=== PATIENT | female | born 1965 | race Caucasian/White ===

== ENCOUNTER → 2016-09-16 | Outpatient (CLI) | payer OTHER | LOC: M CLY 10:33 | PROVIDERS: ATTEND Physician Assistant | DX: R05 Cough (principal); Z53.9 Procedure and treatment not carried out, unspecified reason ==

== ENCOUNTER 2017-07-28 10:00 | Emergency (ER) | payer OTHER ==
[2017-07-28 11:42] LABS: HEMATOCRIT 35.2 % (36.0-47.0); HEMOGLOBIN 12.2 g/dl (12.0-15.5); MEAN CORPUSCULAR HEMOGLOBIN 33.6 pg (27.0-33.0); MEAN CORPUSCULAR HGB CONC 34.7 g/dl (32.0-36.5); PLATELET COUNT, AUTOMATED 287 10^3/uL (150-450); RED BLOOD COUNT 3.63 10^6/uL (4.00-5.40); RED CELL DISTRIBUTION WIDTH 11.7 % (11.5-14.5); WHITE BLOOD COUNT 12.3 10^3/uL (4.0-10.0)
[2017-07-28 12:14] LABS: ACETAMINOPHEN LEVEL < 2.0 UG/ML (10.0-30.0); ALBUMIN 3.3 GM/DL (3.2-5.2); ALBUMIN/GLOBULIN RATIO 1.06 (1.00-1.93); ALKALINE PHOSPHATASE 53 U/L (45-117); ALT/SGPT 10 U/L (12-78); ANION GAP 6 MEQ/L (8-16); AST/SGOT 8 U/L (7-37); BILIRUBIN,DIRECT 0.1 MG/DL (0.0-0.2); BILIRUBIN,TOTAL 0.3 MG/DL (0.2-1.0); BLOOD UREA NITROGEN 10 MG/DL (7-18); CALCIUM LEVEL 8.3 MG/DL (8.5-10.1); CARBON DIOXIDE LEVEL 29 MEQ/L (21-32); CHLORIDE LEVEL 108 MEQ/L (98-107); CPK CREATINE PHOSPHOKINASE 32 U/L (26-192); CREATININE FOR GFR 0.63 MG/DL (0.55-1.30); GLOMERULAR FILTRATION RATE > 60.0 (>51); GLUCOSE, FASTING 73 MG/DL (70-100); POTASSIUM SERUM 4.2 MEQ/L (3.5-5.1); SALICYLATE LEVEL 2.9 MG/DL (5.0-30.0); SODIUM LEVEL 143 MEQ/L (136-145); TOTAL PROTEIN 6.4 GM/DL (6.4-8.2); TROPONIN I < 0.02 NG/ML (< 0.10)
[2017-07-28 12:16] LABS: AMPHETAMINES LEVEL URINE NEGATIVE (NEGATIVE); BARBITURATES URINE NEGATIVE (NEGATIVE); BENZODIAZEPINES URINE NEGATIVE (NEGATIVE); CANNABINOIDS URINE NEGATIVE (NEGATIVE); COCAINE METABOLITE URINE NEGATIVE (NEGATIVE); ETHYL ALCOHOL (ETHANOL) < 0.003 % (0.000-0.010); METHADONE URINE NEGATIVE (NEGATIVE); OPIATES URINE NEGATIVE (NEGATIVE); PHENCYCLIDINE URINE NEGATIVE (NEGATIVE)
[2017-07-28 12:20] LABS: CK-MB VALUE MASS < 1.0 NG/ML (<3.6); MB/CK RELATIVE INDEX 3.12 (< OR =4); THYROID STIMULATING HORMONE 0.446 uIU/ML (0.358-3.740)
== END 2017-07-28 17:32 | disposition short-term general hospital (02) ==
LOC: M ED 10:00
DX: C71.9 Malignant neoplasm of brain, unspecified (principal); R51 Headache; R41.82 Altered mental status, unspecified; F41.9 Anxiety disorder, unspecified; F32.9 Major depressive disorder, single episode, unspecified; F17.200 Nicotine dependence, unspecified, uncomplicated; Z82.49 Family history of ischemic heart disease and other diseases of the circulatory system
CPT/HCPCS: 71046

== ENCOUNTER 2019-05-09 08:51 | Inpatient (IN) | payer OTHER ==
[~2019-05-09] VITALS: Ht 162.6 cm; Wt 53.2 kg
[~2019-05-09 08:51] MED LIST: BUPR150T3; LORA-243 PO; VENTAER
[2019-05-09] MEDS ORDERED: PANT40TA3 PO (08:59)
[2019-05-09] MEDS ORDERED: PERI12LIQ SSP (08:59)
[2019-05-09] MEDS ORDERED: ONDA-83 SL (08:59)
[2019-05-09 09:31] LABS: BASO % 0.5 % (0.0-1.0); EOS # 0.1 10^3/uL (0.0-0.5); EOS % 0.9 % (0.0-3.0); HEMATOCRIT 40.6 % (36.0-47.0); HEMOGLOBIN 13.8 g/dl (12.0-15.5); LYMPH # 1.2 10^3/uL (1.5-5.0); LYMPH % 15.1 % (24.0-44.0); MEAN CORPUSCULAR HEMOGLOBIN 32.9 pg (27.0-33.0); MEAN CORPUSCULAR VOLUME 96.9 fl (80.0-96.0); MONO # 1.1 10^3/uL (0.0-0.8); MONO % 13.6 % (0.0-5.0); NEUTROPHILS # 5.7 10^3/uL (1.5-8.5); NEUTROPHILS % 69.7 % (36.0-66.0); PLATELET COUNT, AUTOMATED 279 10^3/uL (150-450); RED BLOOD COUNT 4.19 10^6/uL (4.00-5.40); WHITE BLOOD COUNT 8.2 10^3/uL (4.0-10.0)
[2019-05-09 10:07] LABS: ALBUMIN 3.2 GM/DL (3.2-5.2); ALT/SGPT 20 U/L (12-78); BILIRUBIN,DIRECT < 0.1 MG/DL (0.0-0.2); BILIRUBIN,TOTAL 0.3 MG/DL (0.2-1.0); BLOOD UREA NITROGEN 8 MG/DL (7-18); CALCIUM LEVEL 8.1 MG/DL (8.5-10.1); CARBON DIOXIDE LEVEL 27 MEQ/L (21-32); CHLORIDE LEVEL 104 MEQ/L (98-107); CREATININE FOR GFR 0.57 MG/DL (0.55-1.30); GLOMERULAR FILTRATION RATE > 60.0 (>51); GLUCOSE, FASTING 82 MG/DL (70-100); LIPASE 1725 U/L (73-393); POTASSIUM SERUM 4.2 MEQ/L (3.5-5.1); SODIUM LEVEL 137 MEQ/L (136-145); TOTAL PROTEIN 6.3 GM/DL (6.4-8.2)
[2019-05-09 10:14] LABS: INFLUENZA A AMPLIFICATION NEGATIVE (NEGATIVE); INFLUENZA B AMPLIFICATION NEGATIVE (NEGATIVE)
[2019-05-09] MEDS ORDERED: ISOVUE-370 76% 100ML VIAL (Q9967) As Ordered ONE (10:30)
[2019-05-09] MEDS ORDERED: ONDANSETRON 4MG/2ML VIAL (J2405) IV ONE (10:30)
[2019-05-09] MEDS ORDERED: NS 1,000 ML IV ONE ×2 (10:30→13:45)
--- NOTE | 2019-05-09 11:40 | REP ---
Clinical: Right-sided abdominal pain. History of metastatic lung cancer. Technique: Axial contrast enhanced images from the lung bases to the pubic symphysis using 100 ml Isovue 370 intravenous contrast material with coronal and sagittal re-formations. Findings: A small amount of ascites within the abdomen and pelvis is appreciated along with mild mucosal thickening to the sigmoid colon raises the possibility of infectious/inflammatory colitis. There is no free air or bowel obstruction. Scattered diverticula noted without acute diverticulitis. Liver, spleen, gallbladder, pancreas, bilateral adrenal glands and kidneys are essentially normal. A 2.6 cm simple appearing right renal cyst is identified. No evidence for bowel obstruction. Evaluation of the pelvis demonstrates enlarged heterogeneous uterus with small adjacent hyperenhancing nodular densities measuring up to approximately 11 mm likely representing small partially exophytic/subserosal fibroids. Hyperenhancement to the right adnexa is also noted and likely physiologic. Atherosclerotic changes to the aorta and vasculature without aneurysm or dissection. Musculoskeletal structures demonstrate age-related changes without focal abnormality. Impression: 1. Small amount of ascites within the abdomen and pelvis along with findings to suggest infectious/inflammatory colitis involving the sigmoid colon. Correlation is recommended. 2. Heterogeneous enlarged myomatous uterus with small hyperenhancing subserosal nodular densities up to 11 mm likely representing actually exophytic/subserosal fibroids. Associated hyperenhancement to the right adnexa likely physiologic. If clinically warranted, consider pelvic ultrasound for further investigation. Electronically Signed by Petey Krishna MD 05/09/2019 11:32 A
[2019-05-09 12:59] LABS: AMYLASE 151 U/L (25-115)
[2019-05-09] MEDS ORDERED: HYDR50TA70 PO (13:27)
[2019-05-09] MEDS ORDERED: LIDO2.5C15 TOP (13:27)
[2019-05-09] MEDS ORDERED: ALBU8.5H INH (13:27)
[2019-05-09] MEDS ORDERED: ONDA4TAB6 PO (13:27)
[2019-05-09] MEDS ORDERED: MORPHINE 2 MG/ML 1ML VIAL (J2270) IV ONE ×2 (13:45→15:00)
[2019-05-09] MEDS ORDERED: EMLA CREAM 5GM (LIDOCAINE/PRILOCAINE) TOP SCH (14:45)
[2019-05-09 16:15] VITALS: BP 114/71
[2019-05-09] MEDS: LORATADINE 10 MG TAB PO SCH (17:36)
[2019-05-09] MEDS: PANTOPRAZOLE 40MG INJ (PROTONIX) (C9113) IV SCH (17:36)
[2019-05-09] MEDS: D5W/LR 1,000 ML IV SCH (17:36)
[2019-05-09] MEDS: CHLORHEXIDINE GLUCONATE 0.12 % 15ML UDC (PERIDEX ORAL RINSE) SSP SCH ×2 (17:37→20:29)
--- NOTE | 2019-05-09 20:15 | HPE ---
DATE OF ADMISSION: 05/09/2019 TIME: 3 p.m. CHIEF COMPLAINT: Abdominal pain. HISTORY OF PRESENT ILLNESS: Mrs. Mcguire is a 54-year-old woman with a past medical history notable for stage IV nonsmall cell lung cancer with metastases to the brain, back, and suspect liver who also has a history of anxiety and depression and gastroesophageal reflux disease (GERD). She is an active smoker. She is currently on Keytruda therapy every [address] Shahbaz Dowling at [facility]. Her last Keytruda infusion was approximately 3 weeks ago. In the interim time, patient had had her bad teeth removed and had been on a week's worth of Augmentin. She started experiencing epigastric abdominal pain which radiated to her back approximately 2 days ago. Around that same time, she had been feeling constipated so she had taken Maalox to deal with the epigastric pain and also to see if that would help with her constipation. She subsequently has developed diarrhea over the last couple of days in addition to nausea and vomiting. She presented to the hospital today and was evaluated in the [facility] Emergency Room by the emergency room (ER) staff. She was found to have a lipase of [address] of [address] of the abdomen and pelvis did not show any specific pancreatic inflammation, but did suggest that she had some mild sigmoid colon wall thickening suggestive of colitis. She is not currently having any acute abdominal pain in her lower quadrant nor is she having any further diarrhea. She was diagnosed as likely having Keytruda induced pancreatitis and admitted to the hospitalist service for supportive care. ALLERGIES: No known drug allergies. CURRENT HOME MEDICATIONS: Are the following: - albuterol inhaler - chlorhexidine - gluconate mouth wash - hydroxyzine - EMLA cream - loratadine - Zofran - Protonix PAST MEDICAL HISTORY: Notable for allergies, GERD, depression, anxiety, as well as lung cancer with metastases. SURGICAL HISTORY: Notable for tubal ligation, Edplax-d-Zmjo placement. SOCIAL HISTORY: Patient is . She lives at home with her . She is not currently working. She smokes about a half a pack per day. She does not use any alcohol or illicit drugs. Patient does not have advanced directives, but she designated her sister, Unique, as her surrogate medical decision maker. She would like to be a FULL CODE for now. FAMILY HISTORY: Notable for her mom who had valvular heart disease as well as lung cancer, dad who had coronary artery disease, and a maternal aunt who also had diabetes. REVIEW OF SYSTEMS: Positive for the abdominal pain, nausea, vomiting, epigastric abdominal pain, diarrhea, recent tooth extractions, and antibiotic use. PHYSICAL EXAMINATION: The patient's temperature is 96.6, pulse 82, respiration rate 20, blood pressure 128/74, oxygen saturation 97% on room air. General: Patient is alert and oriented times three. She is a middle-aged woman who is not cachectic in appearance. Her head is atraumatic. Her pupils are symmetric and reactive to light. No scleral icterus or conjunctival injection. Oropharynx is clear without erythema or thrush. Her neck is supple, no palpable lymphadenopathy. Lung sounds are heard bilaterally without rales, wheezes, or rhonchi. Heart is S1, S2, she is normocardic without any audible murmurs, rubs, or gallops. Her abdomen is soft, she has palpable epigastric tenderness with palpable organomegaly, no peritoneal signs are noted on my examination. Extremities without any cyanosis, clubbing, or edema. Neurologic exam: Cranial nerves II-XII appear to be grossly intact. Her speech is fluent. She is not exhibiting any facial asymmetry. Her extraocular movements are full in all directions. She denies having any vision changes. PERTINENT DIAGNOSTIC STUDIES: Are the following: Imaging study consisting of a CT of the abdomen and pelvis with contrast shows a small amount of ascites within the abdomen and pelvis along with findings to suggest infectious or inflammatory colitis involving the sigmoid colon. Heterogenous enlarged myomatous uterus with small hyperenhancing subserosal nodular densities up to 11 mm likely representing actually exophytic or subserosal fibroids. RELEVANT LABORATORIES: White count 8.2, hemoglobin 13.8, hematocrit 46, platelet count 279,000, sodium 137, potassium 4.2, chloride 104, bicarbonate 27, BUN 8, creatinine 0.57, glucose 82, total bilirubin 0.3, AST 17, ALT 20, alkaline phosphatase 49, albumin 3.2, lipase 1725, amylase 151. IMPRESSION: 1. Acute pancreatitis likely secondary to patient's Keytruda treatment. 2. Mild sigmoid colitis noted on CT of the abdomen and pelvis without any clinical findings to suggest acute colitis. This is likely associated with her Keytruda treatment also. 3. Stage IV lung cancer with metastases. 4. Anxiety and depression. PLAN: Patient will be admitted to inpatient status for treatment of her drug-induced pancreatitis. She will be kept nothing by mouth for now and will be placed on dextrose 5% in lactated ringers (D5LR) at 125 mL/hour. Will recheck lipase and comprehensive metabolic panel (CMP) and complete blood count (CBC) in the morning. Patient will receive supportive morphine for pain control with Zofran. Will resume her home medications. I have instructed her that when she is discharged to followup with her oncologist to discuss possible furlough from Keytruda treatment due to the development of pancreatitis and what appears to be developing colitis on CT scan. Patient will be a FULL CODE with her sister as her surrogate medical decision maker. She will be placed on Lovenox and thromboembolism deterrent stockings (TEDs) for deep venous thrombosis (DVT) prophylaxis.
[2019-05-09] MEDS: MORPHINE 2 MG/ML 1ML VIAL (J2270) IV PRN (20:42)
[2019-05-09 22:00] VITALS: BP 115/59
[2019-05-10] MEDS: hydrOXYzine 50 MG TAB PO PRN (01:35)
[2019-05-10] MEDS: D5W/LR 1,000 ML IV SCH ×4 (01:36→16:24)
[2019-05-10] MEDS: MORPHINE 2 MG/ML 1ML VIAL (J2270) IV PRN ×8 (01:36→23:49)
[2019-05-10 06:00] VITALS: BP 98/56
[2019-05-10 07:10] LABS: HEMATOCRIT 33.6 % (36.0-47.0); HEMOGLOBIN 11.3 g/dl (12.0-15.5); MEAN CORPUSCULAR HEMOGLOBIN 32.6 pg (27.0-33.0); MEAN CORPUSCULAR HGB CONC 33.6 g/dl (32.0-36.5); MEAN CORPUSCULAR VOLUME 96.8 fl (80.0-96.0); PLATELET COUNT, AUTOMATED 231 10^3/uL (150-450); RED BLOOD COUNT 3.47 10^6/uL (4.00-5.40); WHITE BLOOD COUNT 6.4 10^3/uL (4.0-10.0)
[2019-05-10 07:31] LABS: ALBUMIN 2.2 GM/DL (3.2-5.2); ALT/SGPT 17 U/L (12-78); BILIRUBIN,TOTAL 0.2 MG/DL (0.2-1.0); BLOOD UREA NITROGEN 5 MG/DL (7-18); CALCIUM LEVEL 7.8 MG/DL (8.5-10.1); CARBON DIOXIDE LEVEL 27 MEQ/L (21-32); CHLORIDE LEVEL 107 MEQ/L (98-107); CREATININE FOR GFR 0.54 MG/DL (0.55-1.30); GLOMERULAR FILTRATION RATE > 60.0 (>51); GLUCOSE, FASTING 105 MG/DL (70-100); LIPASE 757 U/L (73-393); POTASSIUM SERUM 3.7 MEQ/L (3.5-5.1); SODIUM LEVEL 136 MEQ/L (136-145); TOTAL PROTEIN 4.9 GM/DL (6.4-8.2)
[2019-05-10] MEDS: ENOXAPARIN 40 MG/0.4 ML SYRINGE (J1650) SC SCH (08:34)
[2019-05-10] MEDS: CHLORHEXIDINE GLUCONATE 0.12 % 15ML UDC (PERIDEX ORAL RINSE) SSP SCH ×4 (08:34→20:21)
[2019-05-10] MEDS: PANTOPRAZOLE 40MG INJ (PROTONIX) (C9113) IV SCH (08:34)
[2019-05-10] MEDS: LORATADINE 10 MG TAB PO SCH (08:34)
[2019-05-10 14:00] VITALS: BP 103/68
--- NOTE | 2019-05-10 15:53 | IPNPDOC ---
Subjective Date Seen The patient was seen on 05/10/19. Subjective Chief Complaint/HPI continues to have epigastric pain, but reports it is not as bad as yesterday. No n/v Objective Physical Examination General Exam: Positive: Alert, Mild Distress Eye Exam: Negative: Sclera icteric Neck Exam: Positive: Supple; Negative: JVD Chest Exam: Positive: Clear to auscultation Heart Exam: Positive: Rate Normal, Normal S1, Normal S2; Negative: Murmurs Abdomen Exam: Positive: Normal bowel sounds, Tenderness (epigastric) Extremity Exam: Negative: Edema Neuro Exam: Positive: Normal Speech Psych Exam: Positive: Mental status NL, Mood NL, Oriented x 3 Assessment /Plan Assessment # Acute pancreatitis likely secondary to patient's Keytruda treatment. - start clears, possibly advance diet in am - continue supportive care - hopefully home in 48 hours # Mild sigmoid colitis noted on CT of the abdomen and pelvis without any clinical findings to suggest acute colitis. - f/u with onocologist # Stage IV lung cancer with metastases - due for keytruda tomorrow Plan/VTE VTE Prophylaxis Ordered?: Yes VTE Exclusion Mechanical Proph: N/A:VTE Prophy Ordered VTE Exclusion Pharmacological: N/A:VTE Prophy Ordered VS, I&O, 24H, Fishbone Vital Signs/I&O Vital Signs Date Time Temp Pulse Resp B/P (MAP) Pulse Ox O2 Delivery O2 Flow Rate FiO2 05/10/19 15:30 17 05/10/19 06:05 Room Air 05/10/19 06:00 99.2 85 98/56 (70) 93 I&O- Last 24 Hours up to 6 AM 05/10/19 06:00 Intake Total 2100 ml Output Total 400 ml Balance 1700 ml Laboratory Data 24H LABS Laboratory Tests 2 05/10/19 06:15: Nucleated Red Blood Cells % (auto) 0.0, Anion Gap 2L, Glomerular Filtration Rate > 60.0, Calcium Level 7.8L, Total Bilirubin 0.2, Aspartate Amino Transf (AST/SGOT) 14, Alanine Aminotransferase (ALT/SGPT) 17, Alkaline Phosphatase 38L, Total Protein 4.9#L, Albumin 2.2#L, Albumin/Globulin Ratio 0.81L, Lipase 757H CBC/BMP Laboratory Tests 05/10/19 06:15 WILMER TOLBERT MD May 10, 2019 15:53
[2019-05-10] MEDS ORDERED: SENNA 8.6 MG TAB (SENOKOT) PO PRN (18:15)
[2019-05-10] MEDS ORDERED: DOCUSATE SODIUM 100 MG CAP PO PRN (18:15)
[2019-05-10 22:00] VITALS: BP 94/59
[2019-05-11] MEDS: MORPHINE 2 MG/ML 1ML VIAL (J2270) IV PRN ×8 (04:00→23:15)
[2019-05-11] MEDS: ONDANSETRON 4MG/2ML VIAL (J2405) IV PRN ×2 (04:07→20:35)
[2019-05-11 06:00] VITALS: BP 91/59
[2019-05-11] MEDS: D5W/LR 1,000 ML IV SCH ×3 (07:31→23:15)
[2019-05-11 09:01] VITALS: BP 101/62
[2019-05-11] MEDS: LORATADINE 10 MG TAB PO SCH (09:24)
[2019-05-11] MEDS: CHLORHEXIDINE GLUCONATE 0.12 % 15ML UDC (PERIDEX ORAL RINSE) SSP SCH ×4 (09:25→20:14)
[2019-05-11] MEDS: ENOXAPARIN 40 MG/0.4 ML SYRINGE (J1650) SC SCH (09:26)
[2019-05-11] MEDS: PANTOPRAZOLE 40MG INJ (PROTONIX) (C9113) IV SCH (09:39)
[2019-05-11 13:37] VITALS: BP 102/64
[2019-05-11] MEDS: hydrOXYzine 50 MG TAB PO PRN (20:32)
--- NOTE | 2019-05-11 21:32 | IPNPDOC ---
Subjective Date Seen The patient was seen on 05/11/19. Subjective Chief Complaint/HPI Patient is in good spirits today. She reports that she is able to tolerate broth fairly well, but coffee did upset her stomach. Otherwise, she does not have any acute complaints at this time. General: Reports: Normal Appetite; Denies: Chills, Night Sweats, Fatigue, Malaise Constitutional: Denies: Chills, Fever, Night Sweats ENT: Denies: Head Aches, Ear Pain, Dysphagia Pulmonary: Denies: Dyspnea, Cough Cardiovascular: Denies: Chest Pain, Palpitations, Orthopnea, Paroxysmal Noc. Dyspnea, Lt Headedness Gastrointestinal: Reports: Nausea, Vomiting, Abdominal Pain; Denies: Diarrhea, Constipation Psych: Reports: Mood Normal; Denies: Depression, Memory Issues Objective Physical Examination General Exam: Positive: Alert, Cooperative, No Acute Distress Eye Exam: Negative: Sclera icteric Neck Exam: Positive: Supple; Negative: JVD Chest Exam: Positive: Clear to auscultation, Normal air movement; Negative: Rales, Rhonchi, Wheezing Heart Exam: Positive: Rate Normal, Normal S1, Normal S2; Negative: Murmurs, Rubs Abdomen Exam: Positive: Normal bowel sounds, Tenderness (only minimal epigastric tenderness now) Extremity Exam: Negative: Edema Neuro Exam: Positive: Normal Speech Psych Exam: Positive: Mental status NL, Mood NL, Oriented x 3 Assessment /Plan Plan/VTE VTE Prophylaxis Ordered?: Yes VTE Exclusion Mechanical Proph: N/A:VTE Prophy Ordered VTE Exclusion Pharmacological: N/A:VTE Prophy Ordered Plan # Acute pancreatitis likely secondary to patient's Keytruda treatment. - Tolerating clears, will advance diet as tolerated today - continue supportive care - hopefully home in next 24-48 hours # Mild sigmoid colitis noted on CT of the abdomen and pelvis without any clinical findings to suggest acute colitis. - f/u with onocologist # Stage IV lung cancer with metastases - due for keytruda 05/11/19. This clearly will be delayed. She'll need to discuss with her outpatient oncologist about treatment options going forward VS, I&O, 24H, Fishbone Vital Signs/I&O Vital Signs Date Time Temp Pulse Resp B/P (MAP) Pulse Ox O2 Delivery O2 Flow Rate FiO2 05/11/19 20:16 18 Room Air 05/11/19 13:37 97.9 79 102/64 (21) 94 I&O- Last 24 Hours up to 6 AM 05/11/19 06:00 Intake Total 4045 ml Balance 4045 ml Laboratory Data 24H LABS Laboratory Tests 2 05/11/19 05:49: Lipase 293 EDU SNEED DO May 11, 2019 21:32
[2019-05-11 22:00] VITALS: BP 97/62
[2019-05-12] MEDS: MORPHINE 2 MG/ML 1ML VIAL (J2270) IV PRN ×4 (02:34→13:40)
[2019-05-12 06:00] VITALS: BP 99/63
[2019-05-12 06:39] LABS: HEMATOCRIT 31.9 % (36.0-47.0); HEMOGLOBIN 10.9 g/dl (12.0-15.5); MEAN CORPUSCULAR HEMOGLOBIN 32.9 pg (27.0-33.0); MEAN CORPUSCULAR HGB CONC 34.2 g/dl (32.0-36.5); MEAN CORPUSCULAR VOLUME 96.4 fl (80.0-96.0); PLATELET COUNT, AUTOMATED 226 10^3/uL (150-450); RED BLOOD COUNT 3.31 10^6/uL (4.00-5.40); WHITE BLOOD COUNT 6.6 10^3/uL (4.0-10.0)
[2019-05-12] MEDS: D5W/LR 1,000 ML IV SCH ×3 (07:05→20:08)
[2019-05-12] MEDS: LORATADINE 10 MG TAB PO SCH (08:58)
[2019-05-12] MEDS: ENOXAPARIN 40 MG/0.4 ML SYRINGE (J1650) SC SCH (08:59)
[2019-05-12] MEDS: CHLORHEXIDINE GLUCONATE 0.12 % 15ML UDC (PERIDEX ORAL RINSE) SSP SCH ×4 (08:59→20:05)
[2019-05-12] MEDS: PANTOPRAZOLE 40MG INJ (PROTONIX) (C9113) IV SCH (08:59)
[2019-05-12 14:00] VITALS: BP 97/61
[2019-05-12] MEDS ORDERED: GI COCKTAIL 50ML BTL(HYOSCYAMINE/MAALOX/LIDOCAINE VISCOUS)(1:3:1) PO PRN (15:45)
[2019-05-12] MEDS: metroNIDAZOLE 500 MG in IV 1 EA IV SCH (16:19)
[2019-05-12] MEDS: PERCOCET 5MG/325MG TAB PO PRN ×2 (16:19→22:48)
[2019-05-12] MEDS: CIPROFLOXACIN 400 MG in IV 1 EA IV SCH (18:32)
--- NOTE | 2019-05-12 19:05 | IPNPDOC ---
Date Seen The patient was seen on 05/12/19. Progress Note SUBJECTIVE: 54-year-old female with past history of non-small cell lung cancer with metastases on Keytruda was admitted for pancreatitis and colitis. Patient was treated with IV fluids with subsequent improvement in lipase. Clinically, patient continues to have significant epigastric abdominal pain, poorly controlled with IV morphine. Patient recently had all of her teeth removed in anticipation for dentures, unable to tolerate any solids because of that. Patient reports poor oral intake because she feels full and has epigastric pain when taking any oral intake. She also reports bouts of diarrhea with any oral intake. She denies any shortness of breath, chest pain or headaches. 10 point review of system is negative except for above PHYSICAL EXAMINATION: VITAL SIGNS: Please see below. GENERAL: No distress HEENT: Normocephalic, atraumatic, moist mucous membranes NECK: Supple CARDIOVASCULAR EXAMINATION: S1, S2, no murmurs RESPIRATORY EXAMINATION: Clear to auscultation, no wheezing ABDOMINAL EXAMINATION: Soft, mild epigastric tenderness, nondistended, positive bowel sounds EXTREMITIES: Range of motion intact SKIN: No rash NEUROLOGICAL EXAMINATION: Alert and oriented 3, no focal deficits PSYCHIATRIC EXAMINATION: Calm and cooperative LABORATORY DATA, IMAGING STUDIES, MICROBIOLOGY: Please see below. ASSESSMENT AND PLAN: 54-year-old female with metastatic non-small cell lung cancer, on immunotherapy was admitted for pancreatitis and colitis. PROBLEMS: 1. Pancreatitis/colitis: Labs improved with IV fluids, patient is to have significant GI distress including epigastric pain and diarrhea, CT imaging concerning for colitis, will start Cipro/Flagyl given persistence of symptoms despite improvement in lipase levels, continue IV fluids due to poor oral intake, GI cocktail, continue Protonix and pain control. 2. Non-small cell lung cancer: on Keytruda, possibly the etiology of patient's parotitis, will need to readdress with outpatient oncologist. DVT prophylaxis: Lovenox. GI prophylaxis: Protonix VS, I&O, 24H, Fishbone Vital Signs/I&O Vital Signs Date Time Temp Pulse Resp B/P (MAP) Pulse Ox O2 Delivery O2 Flow Rate FiO2 05/12/19 16:49 16 05/12/19 14:00 98.7 83 97/61 (73) 94 Room Air l I&O- Last 24 Hours up to 6 AM 05/12/19 06:00 Intake Total 5141 ml Output Total 0 ml Balance 5141 ml Laboratory Data 24H LABS Laboratory Tests 2 05/12/19 06:28: Nucleated Red Blood Cells % (auto) 0.0 CBC/BMP Laboratory Tests 05/12/19 06:28 MARIA E MASSEY MD May 12, 2019 19:05
[2019-05-12 22:00] VITALS: BP 102/61
[2019-05-12] MEDS: ONDANSETRON 4MG/2ML VIAL (J2405) IV PRN (22:47)
[2019-05-13] MEDS: metroNIDAZOLE 500 MG in IV 1 EA IV SCH ×2 (01:17→08:30)
[2019-05-13] MEDS: D5W/LR 1,000 ML IV SCH ×2 (04:55→15:00)
[2019-05-13] MEDS: CIPROFLOXACIN 400 MG in IV 1 EA IV SCH (04:56)
[2019-05-13] MEDS: PERCOCET 5MG/325MG TAB PO PRN ×2 (04:56→11:03)
[2019-05-13] MEDS: ONDANSETRON 4MG/2ML VIAL (J2405) IV PRN (04:56)
[2019-05-13 06:00] VITALS: BP 120/82
[2019-05-13 07:25] LABS: HEMATOCRIT 33.6 % (36.0-47.0); HEMOGLOBIN 11.5 g/dl (12.0-15.5); MEAN CORPUSCULAR HEMOGLOBIN 32.9 pg (27.0-33.0); MEAN CORPUSCULAR HGB CONC 34.2 g/dl (32.0-36.5); PLATELET COUNT, AUTOMATED 245 10^3/uL (150-450); WHITE BLOOD COUNT 6.9 10^3/uL (4.0-10.0)
[2019-05-13 07:52] LABS: ALT/SGPT 15 U/L (12-78); BILIRUBIN,TOTAL 0.2 MG/DL (0.2-1.0); BLOOD UREA NITROGEN 5 MG/DL (7-18); CALCIUM LEVEL 7.3 MG/DL (8.5-10.1); CARBON DIOXIDE LEVEL 28 MEQ/L (21-32); CHLORIDE LEVEL 106 MEQ/L (98-107); CREATININE FOR GFR 0.47 MG/DL (0.55-1.30); GLOMERULAR FILTRATION RATE > 60.0 (>51); GLUCOSE, FASTING 81 MG/DL (70-100); MAGNESIUM LEVEL 1.5 MG/DL (1.8-2.4); POTASSIUM SERUM 3.6 MEQ/L (3.5-5.1); SODIUM LEVEL 138 MEQ/L (136-145); TOTAL PROTEIN 4.3 GM/DL (6.4-8.2)
[2019-05-13] MEDS: PANTOPRAZOLE 40MG INJ (PROTONIX) (C9113) IV SCH (08:29)
[2019-05-13] MEDS: CHLORHEXIDINE GLUCONATE 0.12 % 15ML UDC (PERIDEX ORAL RINSE) SSP SCH ×2 (08:29→12:25)
[2019-05-13] MEDS: LORATADINE 10 MG TAB PO SCH (08:29)
[2019-05-13] MEDS: ENOXAPARIN 40 MG/0.4 ML SYRINGE (J1650) SC SCH (08:30)
[2019-05-13] MEDS ORDERED: POTASSIUM CHLORIDE 10 MEQ SR TABLET PO ONE (10:00)
[2019-05-13] MEDS: MAG SULF 1GM/100ML (MAG RUN) 1 GM in IV 1 EA IV SCH ×4 (10:01→13:29)
[2019-05-13] MEDS ORDERED: CIPR-249 PO (11:28)
[2019-05-13] MEDS ORDERED: FLAG500T PO (11:28)
[2019-05-13 14:00] VITALS: BP 109/69
[2019-05-13] MEDS ORDERED: PERCOCET PO (14:44)
== END 2019-05-13 15:23 | disposition home or self-care (01) | DRG 282 ==
LOC: M ED 08:51 → M ED INP 14:39 → ENRESERV 14:56 → M MS5PR 16:15
PROVIDERS: ADMIT Internal Medicine; ATTEND Internal Medicine
DX: K85.30 Drug induced acute pancreatitis without necrosis or infection (principal); C79.31 Secondary malignant neoplasm of brain; C79.51 Secondary malignant neoplasm of bone; K52.1 Toxic gastroenteritis and colitis; C34.90 Malignant neoplasm of unspecified part of unspecified bronchus or lung; F41.9 Anxiety disorder, unspecified; F32.9 Major depressive disorder, single episode, unspecified; K21.9 Gastro-esophageal reflux disease without esophagitis; F17.200 Nicotine dependence, unspecified, uncomplicated; T45.1X5A Adverse effect of antineoplastic and immunosuppressive drugs, initial encounter

== ENCOUNTER → 2019-05-18 | Outpatient (REF) | payer OTHER ==
[~2019-05-18] MED LIST changes: +ALBU8.5H INH; +CIPR-249 PO; +FLAG500T PO; +HYDR50TA70 PO; +LIDO2.5C15 TOP; +ONDA-83 SL; +ONDA4TAB6 PO; +PANT40TA3 PO; +PERCOCET PO; +PERI12LIQ SSP
[2019-05-18 17:11] LABS: HEMATOCRIT 40.8 % (36.0-47.0); MEAN CORPUSCULAR HEMOGLOBIN 32.3 pg (27.0-33.0); MEAN CORPUSCULAR HGB CONC 34.3 g/dl (32.0-36.5); MEAN CORPUSCULAR VOLUME 94.2 fl (80.0-96.0); PLATELET COUNT, AUTOMATED 366 10^3/uL (150-450); RED BLOOD COUNT 4.33 10^6/uL (4.00-5.40); WHITE BLOOD COUNT 13.6 10^3/uL (4.0-10.0)
[2019-05-18 17:14] LABS: APPEARANCE, URINE TURBID (CLEAR); BACTERIA, URINE AUTO NEGATIVE (NEGATIVE); BILIRUBIN, URINE AUTO 2+ (NEGATIVE); BLOOD, URINE BLOOD NEGATIVE (NEGATIVE); COLOR, URINE YELLOW (YELLOW); GLUCOSE, URINE (UA) AUTO NEGATIVE (NEGATIVE); KETONE, URINE AUTO 2+ mg/dL (NEGATIVE); LEUKOCYTE ESTERASE, URINE AUTO NEGATIVE (NEGATIVE); MUCUS, URINE LARGE (NEGATIVE); NITRITE, URINE AUTO NEGATIVE (NEGATIVE); PROTEIN, URINE AUTO 2+ mg/dL (NEGATIVE); RBC, URINE AUTO 0 /HPF (0-3); SPECIFIC GRAVITY URINE AUTO 1.033 (1.002-1.035); SQUAMOUS EPITHELIAL CELL UR AU 8 /HPF (0-6); WBC, URINE AUTO 0 /HPF (0-3)
[2019-05-18 17:19] LABS: ALBUMIN 2.2 GM/DL (3.2-5.2); ALT/SGPT 37 U/L (12-78); BILIRUBIN,TOTAL 0.2 MG/DL (0.2-1.0); BLOOD UREA NITROGEN 8 MG/DL (7-18); CALCIUM LEVEL 7.4 MG/DL (8.5-10.1); CARBON DIOXIDE LEVEL 22 MEQ/L (21-32); CHLORIDE LEVEL 104 MEQ/L (98-107); CREATININE FOR GFR 0.43 MG/DL (0.55-1.30); GLOMERULAR FILTRATION RATE > 60.0 (>51); GLUCOSE, FASTING 76 MG/DL (70-100); LIPASE 220 U/L (73-393); MAGNESIUM LEVEL 1.9 MG/DL (1.8-2.4); POTASSIUM SERUM 3.2 MEQ/L (3.5-5.1); SODIUM LEVEL 138 MEQ/L (136-145); TOTAL PROTEIN 4.5 GM/DL (6.4-8.2)
== END ==
LOC: M SFHCCAPE 10:57
PROVIDERS: ATTEND Physician Assistant
DX: K52.9 Noninfective gastroenteritis and colitis, unspecified (principal); E83.42 Hypomagnesemia; R19.7 Diarrhea, unspecified; K85.30 Drug induced acute pancreatitis without necrosis or infection; R31.29 Other microscopic hematuria

== ENCOUNTER 2019-05-24 14:30 | Inpatient (IN) | payer OTHER ==
[~2019-05-24] VITALS: Ht 162.6 cm; Wt 57.5 kg
[2019-05-24 17:39] LABS: ALT/SGPT 29 U/L (12-78); AMYLASE 88 U/L (25-115); BILIRUBIN,DIRECT < 0.1 MG/DL (0.0-0.2); BILIRUBIN,TOTAL 0.3 MG/DL (0.2-1.0); BLOOD UREA NITROGEN 9 MG/DL (7-18); CALCIUM LEVEL 7.5 MG/DL (8.5-10.1); CARBON DIOXIDE LEVEL 25 MEQ/L (21-32); CHLORIDE LEVEL 109 MEQ/L (98-107); GLOMERULAR FILTRATION RATE > 60.0 (>51); GLUCOSE, FASTING 94 MG/DL (70-100); LIPASE 853 U/L (73-393); NT-PRO BNP 131 PG/ML (<125); POTASSIUM SERUM 4.2 MEQ/L (3.5-5.1); SODIUM LEVEL 138 MEQ/L (136-145); TOTAL PROTEIN 4.8 GM/DL (6.4-8.2)
[2019-05-24 17:43] LABS: PROTHROMBIN TIME 12.9 SECONDS (11.8-14.0)
[2019-05-24 17:44] LABS: PARTIAL THROMBOPLASTIN TIME 28.1 SECONDS (25.0-38.4)
[2019-05-24 17:54] LABS: BASO # 0.1 10^3/uL (0.0-0.2); BASO % 0.3 % (0.0-1.0); EOS # 0.1 10^3/uL (0.0-0.5); EOS % 0.6 % (0.0-3.0); HEMATOCRIT 36.9 % (36.0-47.0); LYMPH # 2.1 10^3/uL (1.5-5.0); MEAN CORPUSCULAR HEMOGLOBIN 33.1 pg (27.0-33.0); MEAN CORPUSCULAR HGB CONC 35.2 g/dl (32.0-36.5); MEAN CORPUSCULAR VOLUME 93.9 fl (80.0-96.0); MONO # 1.6 10^3/uL (0.0-0.8); MONO % 9.2 % (0.0-5.0); NEUTROPHILS # 13.4 10^3/uL (1.5-8.5); NEUTROPHILS % 77.1 % (36.0-66.0); PLATELET COUNT, AUTOMATED 412 10^3/uL (150-450); RED BLOOD COUNT 3.93 10^6/uL (4.00-5.40); WHITE BLOOD COUNT 17.4 10^3/uL (4.0-10.0)
[2019-05-24] MEDS ORDERED: NS 1,000 ML IV ONE (18:00)
[2019-05-24] MEDS ORDERED: METOCLOPRAMIDE INJ 10MG/2ML VIAL (J2765) IV ONE (18:15)
[2019-05-24] MEDS: GASTROGRAFIN SOLUTION 30ML PO SCH ×2 (18:41→19:23)
[2019-05-24] MEDS ORDERED: ISOVUE-370 76% 100ML VIAL (Q9967) As Ordered ONE (20:09)
--- NOTE | 2019-05-24 20:33 | REPVR ---
PROCEDURE INFORMATION: Exam: CT Abdomen And Pelvis With Contrast Exam date and time: 05/24/2019 8:16 PM Age: 54 years old Clinical indication: Abdominal pain; Additional info: Abd pain with leukocytosis TECHNIQUE: Imaging protocol: Computed tomography of the abdomen and pelvis with intravenous contrast. Radiation optimization: All CT scans at this facility use at least one of these dose optimization techniques: automated exposure control; mA and/or kV adjustment per patient size (includes targeted exams where dose is matched to clinical indication); or iterative reconstruction. Contrast material: ISOVUE 370; Contrast volume: 100 ml; Contrast route: IV; COMPARISON: CT ABD PELVIS WITH CONTRAST 05/09/2019 11:03 AM FINDINGS: Liver: Moderate central spinal stenosis L4-L5.There is a diffuse decrease in hepatic parenchymal density, consistent with steatosis. Gallbladder and bile ducts: Mild gallbladder wall thickening with a 4 mm polypoid lesion near the gallbladder fundus. Finding may represent an aggregate of sludge, gallstone or polyp. Ultrasound correlation suggested. Pancreas: Normal. No ductal dilation. Spleen: Normal. No splenomegaly. Adrenals: Normal. No mass. Kidneys and ureters: 2.5 cm simple cyst right kidney. Stomach and bowel: There is increased fluid demonstrated in the colon consistent with diarrhea. No mass demonstrated. Also noted is a boggy appearance of the colon with a suggestion of mild mucosal enhancement. Findings may indicate the presence of colitis. Appendix: No evidence of appendicitis. Intraperitoneal space: Unremarkable. No free air. No significant fluid collection. Vasculature: The aorta demonstrates mild atherosclerotic calcification. Lymph nodes: Unremarkable. No enlarged lymph nodes. Bladder: Unremarkable as visualized. Reproductive: Ill-defined hyperenhancing mass in the uterine fundus measures 4.4 x 3.6 x 4.4 cm most consistent with a fibroid. Also noted is a exophytic enhancing submucosal fibroid measuring 11 mm. Bones/joints: Unremarkable. No acute fracture. Soft tissues: Unremarkable. IMPRESSION: 1. Moderate central spinal stenosis L4-L5.There is a diffuse decrease in hepatic parenchymal density, consistent with steatosis. 2. Mild gallbladder wall thickening with a 4 mm polypoid lesion near the gallbladder fundus. Finding may represent an aggregate of sludge, gallstone or polyp. Ultrasound correlation suggested. 3. 2.5 cm simple cyst right kidney. 4. There is increased fluid demonstrated in the colon consistent with diarrhea. No mass demonstrated. Also noted is a boggy appearance of the colon with a suggestion of mild mucosal enhancement. Findings may indicate the presence of colitis. 5. Uterine fibroids. COMMENTS: Consistent with the [employer]'s Incidental Findings Committee white paper (J Am Angela Radiol 2018): Any incidental cystic renal lesion classified in this report as too small to characterize or simple appearing is likely a benign cyst. No follow-up imaging is recommended for these lesions per consensus recommendations based on imaging criteria. Electronically signed by: Kiran Allen On 05/24/2019 20:32:30 PM
--- NOTE | 2019-05-24 21:12 | ECGEPIP ---
[facility] - ED Test Date: 2019-05-24 Pat Name: NEELA MITCHELL Department: Room: - Gender: Female [employer] Agent: LIZBETH : [id number] Requested By: TK CARMONA Order Number: [id number] Reading MD: Alfa Vick Measurements Intervals [place] Rate: 71 P: 75 PA: 121 QRS: 71 QRSD: 86 T: -69 QT: 400 QTc: 436 Interpretive Statements SINUS RHYTHM ST-T wave abnormalities not previously noted on tracing done 07-28-17 Electronically Signed on 05-24-2019 21:11:56 EST by Alfa Vick
--- NOTE | 2019-05-24 22:15 | REPVR ---
PROCEDURE INFORMATION: Exam: US Abdomen Limited, Right Upper Quadrant Exam date and time: 05/24/2019 10:03 PM Age: 54 years old Clinical indication: Abnormal findings; Abnormal radiologic finding of the abdomen; Radiologic exam and body structure: CT; Additional info: Upper abd pain with possible sludge or gallstone on CT TECHNIQUE: Imaging protocol: Real-time ultrasound of the abdomen with image documentation. Examination was focused on the right upper quadrant. COMPARISON: CT ABD/PEL W/IV ORAL CONTRAS 05/24/2019 8:13 PM FINDINGS: Liver: Normal. No masses. Gallbladder: Polypoid lesion in the gallbladder fundus measures 6 x 5.8 mm. Mild thickening of the gallbladder wall near the fundus. Findings may indicate the presence of adenomyomatosis. Common bile duct: The common bile duct measures 7.0 mm. No mass or choledocholithiasis. Pancreas: Visualized pancreas is unremarkable. Right kidney: Simple right renal cyst within the lower pole measures 2.6 x 2.5 x 2.5 cm. Right kidney measures 9.7 x 5.3 x 4.4 cm. Portal venous: Prominent main portal vein measures 1.7 cm without evidence of thrombosis. IMPRESSION: 1. Polypoid lesion in the gallbladder associated with gallbladder wall thickening, findings which may indicate the presence of adenomyomatosis. 2. Simple right renal cyst within the lower pole measures 2.6 x 2.5 x 2.5 cm. COMMENTS: Consistent with the [employer]'s Incidental Findings Committee white paper (J Am Angela Radiol 2018): Any incidental cystic renal lesion classified in this report as too small to characterize or simple appearing is likely a benign cyst. No follow-up imaging is recommended for these lesions per consensus recommendations based on imaging criteria. Electronically signed by: Kiran Allen On 05/24/2019 22:15:28 PM
[2019-05-24] MEDS ORDERED: PERC5TAB12 PO (23:31)
[2019-05-24] MEDS ORDERED: POTA1TAB14 PO (23:31)
[2019-05-24] MEDS ORDERED: BACITAB PO (23:31)
[2019-05-24] MEDS ORDERED: ONDA-83 PO (23:31)
[2019-05-24] MEDS ORDERED: NS 1,000 ML IV SCH (23:58)
[2019-05-25] VITALS (7 sets, daily range): BP systolic 84–96; BP diastolic 53–60
[2019-05-25] MEDS ORDERED: ASPIRIN 325 MG TAB PO ONE
--- NOTE | 2019-05-25 00:02 | HPEPDOC ---
[facility] Medical History & Physical Date of Admission May 25, 2019 Date of Service: May 25, 2019 Primary Care Physician: LETY JENKINS PA-C Attending Physician: TAYLA LEON MD History and Physical TIME OF SERVICE 1250AM CHIEF COMPLAINT: abdominal pain HISTORY OF PRESENT ILLNESS: This is a 54 yr old F that was recently admitted for management of presumed keytruda induced pancreatitis; during that admission recommendations were made for her to follow up with her Oncologist; the appointment is scheduled for tomorrow. Yesterday afternoon she was sent by her PCP for evaluation because of persistent 8-10/10 in severity, mid, cramping relapsing and remitting abdominal pain that occasionally radiates to the right side of her abdomen. The pain tends to occur after she eats. She also has nonbloody watery BMs 20 min after she eats and a poor appetite. Her last meal was at 2PM yesterday. She denies having n/v/f/c. ROS: 12 point ROS negative except as listed in HPI PAST MEDICAL /SURGICAL HISTORY: Lung Cancer w mets possibly to the liver GERD Depression / Anxiety Hepatic Steatosis Uterine Fibroids s/p tubal ligation s/p port a cath placement SH + Tobacco FMH Valvular heart dz CAD Lung CA DM ALLERGIES: Please see below. HOME MEDICATIONS: Please see below. PHYSICAL EXAMINATION: Vital Signs Date Time Temp Pulse Resp B/P (MAP) Pulse Ox O2 Delivery O2 Flow Rate FiO2 05/24/19 14:31 98.2 97 20 97/55 (69) 97 Room Air GEN:NAD/ appears chronically ill HEENT: NCAT/ mucus membranes moist and pink CVS: RRR/NMRG LUNGS: CTAB on RA ABD: no correa or quinones's sign / bowel sounds hypoactive / soft & tender with palpation MSK: LICHA in 4 extremities / no lower extremity edema NEURO: CN 2-12 grossly intact / speech not dysarthric PSYCH: A&Ox3 /able to understand and follow all commands LABORATORY DATA: See below. IMAGING: CT abdomen/pelvis " IMPRESSION: 1. Moderate central spinal stenosis L4-L5.There is a diffuse decrease in hepatic parenchymal density, consistent with steatosis. 2. Mild gallbladder wall thickening with a 4 mm polypoid lesion near the gallbladder fundus. Finding may represent an aggregate of sludge, gallstone or polyp. Ultrasound correlation suggested. 3. 2.5 cm simple cyst right kidney. 4. There is increased fluid demonstrated in the colon consistent with diarrhea. No mass demonstrated. Also noted is a boggy appearance of the colon with a suggestion of mild mucosal enhancement. Findings may indicate the presence of colitis. 5. Uterine fibroids" Gallbladder US " IMPRESSION: 1. Polypoid lesion in the gallbladder associated with gallbladder wall thickening, findings which may indicate the presence of adenomyomatosis. 2. Simple right renal cyst within the lower pole measures 2.6 x 2.5 x 2.5 cm. " MICROBIOLOGY: Please see below. ASSESSMENT: is a 54 yr old F w a PMH of metastatic lung CA, Anxiety, Depression and GERD who is admitted for management of SIRS, N/V/D and mild pancreatitis. PLAN: 1. SIRS possibly reactive due to pancreatitis vs colitis SIRs criteria include elevated WBC # and HR Plan: admit to medical floor / telemetry / IVF / zosyn / f/u blood cx / f/u UA 2. N/V/D Possibly due to colitis vs pancreatitis Plan: monitor Is and Os / IVF / will hold off stool studies for now / abx 3. Keytruda Induced ? Pancreatitis - Plan: NPO / IVF / pain control with Ofrimev and Morphine/ f/u w Oncologist to discuss switching from Keytruda 4. Metastatic Lung CA - Plan: f/u Oncologist as scheduled 5. GERD - Plan: PPI DVT Px w Lovenox Dispo: home after more than 2 midnight's stay LATE ENTRY #Hypokalemia 2/2 GI loss - Plan: replete K Home Medications Scheduled Chlorhexidine Gluconate (Chlorhexidine Gluconate) 473 Ml Mouthwash, 15 ML SSP QID Hydroxyzine HCl (Hydroxyzine HCl) 50 Mg Tablet, 50 MG PO QHS L.acidoph/L.bulg/B.bif/S.therm (Bacid Caplet) 1 Each Tablet, 2 TAB PO DAILY Lidocaine/Prilocaine (Lidocaine-Prilocaine Cream) 2.5%/2.5% Cream..g., 1 DOSE TOP ASDIRECTED APPLY TO PORT BEFORE KEYTRUDA (EVERY 3 WEEKS) Loratadine (Loratadine) 10 Mg Tab, 10 MG PO DAILY Pantoprazole Sodium (Pantoprazole Sodium) 40 Mg Tablet.dr, 40 MG PO DAILY Potassium Chloride (Potassium Chloride) 20 Meq Tablet.er, 20 MEQ PO DAILY Scheduled PRN Albuterol Sulfate (Albuterol Sulfate Hfa) 8.5 Gm Hfa.aer.ad, 2 PUFF INH Q4H PRN for SHORTNESS OF BREATH Ondansetron HCl (Ondansetron HCl) 4 Mg Tablet, 4 MG PO TID PRN for NAUSEA Oxycodone HCl/Acetaminophen (Percocet 5-325 mg Tablet) 1 Each Tablet, 1 TAB PO Q6H PRN for PAIN Allergies Coded Allergies: No Known Allergies (Unverified , 07/28/17) A-FIB/CHADSVASC A-FIB History Current/History of A-Fib/PAF?: No Current PO Anticoag Therapy: No TAYLA LEON MD May 25, 2019 00:02
[2019-05-25] MEDS: PIPERACILLIN/TAZOBACTAM SOD 3.375 GM in D5W MINI-BAG PLUS 50 ML IV SCH ×4 (00:21→23:46)
[2019-05-25 00:25] LABS: CK-MB VALUE MASS < 1.0 NG/ML (<3.6); CPK CREATINE PHOSPHOKINASE 126 U/L (26-192); MB/CK RELATIVE INDEX 0.79 (< OR =4); TROPONIN I < 0.02 NG/ML (< 0.10)
[2019-05-25 01:12] LABS: HEMATOCRIT 32.5 % (36.0-47.0); HEMOGLOBIN 11.4 g/dl (12.0-15.5); MEAN CORPUSCULAR HEMOGLOBIN 32.9 pg (27.0-33.0); MEAN CORPUSCULAR HGB CONC 35.1 g/dl (32.0-36.5); MEAN CORPUSCULAR VOLUME 93.9 fl (80.0-96.0); PLATELET COUNT, AUTOMATED 355 10^3/uL (150-450); RED BLOOD COUNT 3.46 10^6/uL (4.00-5.40); WHITE BLOOD COUNT 13.5 10^3/uL (4.0-10.0)
[2019-05-25] MEDS ORDERED: MORPHINE 4 MG/ML 1ML VIAL/SYRINGE (J2270) IV PRN (01:15)
[2019-05-25] MEDS ORDERED: ACETAMINOPHEN *IV* 1,000 MG in IV 1 EA IV PRN (01:15)
[2019-05-25 01:34] LABS: BLOOD UREA NITROGEN 8 MG/DL (7-18); CALCIUM LEVEL 7.1 MG/DL (8.5-10.1); CARBON DIOXIDE LEVEL 25 MEQ/L (21-32); CHLORIDE LEVEL 112 MEQ/L (98-107); CREATININE FOR GFR 0.41 MG/DL (0.55-1.30); GLOMERULAR FILTRATION RATE > 60.0 (>51); GLUCOSE, FASTING 91 MG/DL (70-100); POTASSIUM SERUM 3.1 MEQ/L (3.5-5.1); SODIUM LEVEL 142 MEQ/L (136-145)
[2019-05-25 01:54] LABS: MAGNESIUM LEVEL 1.8 MG/DL (1.8-2.4)
[2019-05-25] MEDS ORDERED: ALBUTEROL 90 MCG/ACT 8GM HFA INHALER INH PRN (02:45)
[2019-05-25] MEDS ORDERED: EMLA CREAM 5GM (LIDOCAINE/PRILOCAINE) TOP SCH (02:45)
[2019-05-25] MEDS ORDERED: SODIUM CHLORIDE 0.9% 1000ML IV STA (02:52)
[2019-05-25] MEDS ORDERED: POTASSIUM CHLORIDE INJ 60 MEQ in NS 1,000 ML IV SCH (03:45)
[2019-05-25] MEDS ORDERED: POTASSIUM CHLORIDE INJ 40 MEQ in NS 1,000 ML IV SCH (03:52)
[2019-05-25] MEDS: KCL 40MEQ in NS 1000ML 1,000 ML IV SCH ×3 (04:51→20:35)
[2019-05-25] MEDS: ENOXAPARIN 40 MG/0.4 ML SYRINGE (J1650) SC SCH (05:37)
[2019-05-25] MEDS: CHLORHEXIDINE GLUCONATE 0.12 % 15ML UDC (PERIDEX ORAL RINSE) SSP SCH ×4 (08:11→20:34)
[2019-05-25] MEDS ORDERED: SODIUM CHLORIDE 0.9% INJ 10 ML SYR IV SCH (09:00)
--- NOTE | 2019-05-25 09:52 | IPN ---
DATE: 05/25/2019 Ivy was admitted to the hospitalist service with pancreatitis versus colitis. She feels better on IV fluids. 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 PHYSICAL EXAMINATION: VITAL SIGNS: Stable. 92/58. LUNGS: Clear. HEART: Regular rhythm. ABDOMEN: Soft. Mildly tender. No distention. EXTREMITIES: Without clubbing, cyanosis or edema. LABORATORIES: White count is down to 13.5, hemoglobin 11.4, platelets 355. Sodium 142, potassium 3.1, BUN 8, creatinine 0.4, glucose 91, albumin 2.0, calcium corrects to normal with correcting for albumin, lipase 853. IMPRESSION: 1. Probable pancreatitis. Continue IV fluids. We will do clear liquids. This could be colitis. I have ordered a GI panel. Followup amylase and lipase tomorrow. She is on IV Zosyn for now. I would discontinue this if the GI panel is unremarkable. She is on deep vein thrombosis (DVT) prophylaxis with Lovenox. 2. Metastatic lung cancer. Treatment per oncology. 3. Systemic inflammatory response syndrome (SIRS). Blood cultures are pending. Continue IV fluids. Intravenous Zosyn, which I will stop if the GI panel is negative. 4. Hypokalemia. She has potassium in IV fluid and I will order some oral potassium as well.
[2019-05-25] MEDS ORDERED: POTASSIUM CHLORIDE 10 MEQ SR TABLET PO ONE (10:00)
[2019-05-25] MEDS ORDERED: EMLA CREAM 5GM (LIDOCAINE/PRILOCAINE) TOP ONE (14:00)
[2019-05-25] MEDS ORDERED: ACETAMINOPHEN TAB 650MG DOSE (2X325MG) PO PRN (20:15)
[2019-05-26 02:00] VITALS: BP 92/60
[2019-05-26] MEDS: ENOXAPARIN 40 MG/0.4 ML SYRINGE (J1650) SC SCH (05:26)
[2019-05-26] MEDS: KCL 40MEQ in NS 1000ML 1,000 ML IV SCH ×2 (05:26→09:16)
[2019-05-26 05:56] LABS: HEMOGLOBIN 10.4 g/dl (12.0-15.5); MEAN CORPUSCULAR HEMOGLOBIN 32.5 pg (27.0-33.0); MEAN CORPUSCULAR HGB CONC 33.5 g/dl (32.0-36.5); MEAN CORPUSCULAR VOLUME 96.9 fl (80.0-96.0); PLATELET COUNT, AUTOMATED 386 10^3/uL (150-450); WHITE BLOOD COUNT 12.1 10^3/uL (4.0-10.0)
[2019-05-26 06:00] VITALS: BP 88/50
[2019-05-26 06:33] LABS: ALBUMIN 1.5 GM/DL (3.2-5.2); ALT/SGPT 19 U/L (12-78); AMYLASE 71 U/L (25-115); BILIRUBIN,TOTAL 0.2 MG/DL (0.2-1.0); BLOOD UREA NITROGEN 4 MG/DL (7-18); CARBON DIOXIDE LEVEL 24 MEQ/L (21-32); CHLORIDE LEVEL 118 MEQ/L (98-107); CREATININE FOR GFR 0.36 MG/DL (0.55-1.30); GLOMERULAR FILTRATION RATE > 60.0 (>51); GLUCOSE, FASTING 84 MG/DL (70-100); LIPASE 841 U/L (73-393); POTASSIUM SERUM 4.4 MEQ/L (3.5-5.1); SODIUM LEVEL 142 MEQ/L (136-145); TOTAL PROTEIN 3.7 GM/DL (6.4-8.2)
[2019-05-26] MEDS: PIPERACILLIN/TAZOBACTAM SOD 3.375 GM in D5W MINI-BAG PLUS 50 ML IV SCH (09:16)
[2019-05-26] MEDS: CHLORHEXIDINE GLUCONATE 0.12 % 15ML UDC (PERIDEX ORAL RINSE) SSP SCH ×4 (09:16→22:05)
[2019-05-26 10:00] VITALS: BP 103/64
--- NOTE | 2019-05-26 10:47 | IPN ---
DATE: 05/26/2019 Ivy feels much better. No abdominal pain. She wants to eat. Her white count is down and her appetite is improved. She has got some peripheral edema, probably from the IV fluids. Her lipase is still mildly elevated. PHYSICAL EXAMINATION: Afebrile. Systolic pressure is between 88-100, which is typically her baseline. General appearance: Looks well perfused. Resting comfortably in on distress. Lungs clear. Heart regular rhythm. Abdomen soft, nontender. She has 1+ peripheral edema. LABS: Sodium 142, potassium 4.4, BUN 4, creatinine 0.3, glucose 84, lipase 840, white count 12.1, hemoglobin 10.4 (down from hydration), platelets 386. IMPRESSION: Mild pancreatitis. Will advance her diet, stop the IV fluids. I expect the edema will correct itself off the IV fluids. Need to keep in mind that her systolic blood pressure typically runs below 100 anyway. Also stopping her Zosyn as there is no sign of any bacterial infection at this point. Anticipate discharge tomorrow.
[2019-05-26 14:00] VITALS: BP 103/64
[2019-05-26 18:00] VITALS: BP 115/75
[2019-05-26 22:00] VITALS: BP 111/17
[2019-05-27 02:00] VITALS: BP 117/78
[2019-05-27 06:00] VITALS: BP 121/81
[2019-05-27 06:38] LABS: HEMATOCRIT 33.1 % (36.0-47.0); HEMOGLOBIN 11.3 g/dl (12.0-15.5); MEAN CORPUSCULAR HEMOGLOBIN 32.8 pg (27.0-33.0); MEAN CORPUSCULAR HGB CONC 34.1 g/dl (32.0-36.5); MEAN CORPUSCULAR VOLUME 95.9 fl (80.0-96.0); PLATELET COUNT, AUTOMATED 453 10^3/uL (150-450); RED BLOOD COUNT 3.45 10^6/uL (4.00-5.40); WHITE BLOOD COUNT 11.8 10^3/uL (4.0-10.0)
[2019-05-27] MEDS: ENOXAPARIN 40 MG/0.4 ML SYRINGE (J1650) SC SCH (06:55)
[2019-05-27 07:03] LABS: ALBUMIN 1.7 GM/DL (3.2-5.2); ALT/SGPT 23 U/L (12-78); BILIRUBIN,TOTAL 0.2 MG/DL (0.2-1.0); BLOOD UREA NITROGEN 3 MG/DL (7-18); CALCIUM LEVEL 7.2 MG/DL (8.5-10.1); CARBON DIOXIDE LEVEL 24 MEQ/L (21-32); CHLORIDE LEVEL 113 MEQ/L (98-107); CREATININE FOR GFR 0.37 MG/DL (0.55-1.30); GLOMERULAR FILTRATION RATE > 60.0 (>51); GLUCOSE, FASTING 77 MG/DL (70-100); POTASSIUM SERUM 4.1 MEQ/L (3.5-5.1); SODIUM LEVEL 141 MEQ/L (136-145); TOTAL PROTEIN 4.4 GM/DL (6.4-8.2)
[2019-05-27] MEDS: CHLORHEXIDINE GLUCONATE 0.12 % 15ML UDC (PERIDEX ORAL RINSE) SSP SCH (08:55)
[2019-05-27 10:00] VITALS: BP 101/58
--- NOTE | 2019-05-27 11:59 | DSES ---
DATE OF ADMISSION: 05/24/2019 DATE OF DISCHARGE: PRINCIPAL DIAGNOSIS: Mild pancreatitis. SECONDARY DIAGNOSES: 1. History of metastatic lung disease. 2. Systemic inflammatory response syndrome (SIRS). 3. Hypokalemia. HISTORY: Ivy Mcguire was admitted with abdominal pain, pancreatitis versus colitis, history of Keytruda associated pancreatitis, been hospitalized for this in the past. HOSPITAL COURSE: She had a relatively uncomplicated hospitalization. She was admitted to a medical bed. Clear liquids for a day and then diet advanced. White count was 17 on admission, improved on a daily basis. Abdominal pain resolved after a day of clear liquid diet. We advanced her diet without difficulty. Followup lab work was unremarkable. Gastrointestinal (GI) panel was negative. Blood cultures were negative. I stopped her IV antibiotic yesterday. On the day of discharge, she is eating a full breakfast and eager to go home. She will be on diet as tolerated and activity as tolerated. She will followup with SHAWN Flynn at the [facility] office in a week. Medications are unchanged before admission: - albuterol 2 puffs four times a day as needed - hydroxyzine 50 mg nightly - Bacid 2 tablets daily - loratadine 10 mg daily - Zofran as needed - Percocet 5/325 every 6 hours as needed - Protonix 40 mg daily - potassium chloride 20 mEq daily At the time of this dictation, no pending labs.
== END 2019-05-27 12:12 | disposition home or self-care (01) | DRG 282 ==
LOC: M ED 14:30 → M ED INP 23:58 → ENRESERV 05-25 02:23 → M MSPAV 05-25 04:00
PROVIDERS: ADMIT Internal Medicine; ATTEND Internal Medicine
DX: K85.90 Acute pancreatitis without necrosis or infection, unspecified (principal); C78.7 Secondary malignant neoplasm of liver and intrahepatic bile duct; R65.10 Systemic inflammatory response syndrome (SIRS) of non-infectious origin without acute organ dysfunction; C34.90 Malignant neoplasm of unspecified part of unspecified bronchus or lung; T45.1X5A Adverse effect of antineoplastic and immunosuppressive drugs, initial encounter; K52.9 Noninfective gastroenteritis and colitis, unspecified; K21.9 Gastro-esophageal reflux disease without esophagitis; E87.6 Hypokalemia

== ENCOUNTER → 2019-06-01 | Outpatient (REF) | payer OTHER ==
[~2019-06-01] MED LIST changes: +BACITAB PO; +ONDA-83 PO; +PERC5TAB12 PO; +POTA1TAB14 PO
[2019-06-01 16:36] LABS: BASO # 0.1 10^3/uL (0.0-0.2); BASO % 0.6 % (0.0-1.0); EOS # 0.1 10^3/uL (0.0-0.5); EOS % 0.8 % (0.0-3.0); HEMATOCRIT 35.1 % (36.0-47.0); HEMOGLOBIN 11.8 g/dl (12.0-15.5); LYMPH # 1.6 10^3/uL (1.5-5.0); LYMPH % 13.8 % (24.0-44.0); MEAN CORPUSCULAR HEMOGLOBIN 32.9 pg (27.0-33.0); MEAN CORPUSCULAR HGB CONC 33.6 g/dl (32.0-36.5); MEAN CORPUSCULAR VOLUME 97.8 fl (80.0-96.0); MONO # 1.2 10^3/uL (0.0-0.8); MONO % 10.5 % (0.0-5.0); NEUTROPHILS # 8.7 10^3/uL (1.5-8.5); NEUTROPHILS % 73.9 % (36.0-66.0); PLATELET COUNT, AUTOMATED 540 10^3/uL (150-450); RED BLOOD COUNT 3.59 10^6/uL (4.00-5.40); WHITE BLOOD COUNT 11.8 10^3/uL (4.0-10.0)
[2019-06-01 16:38] LABS: ALBUMIN 2.1 GM/DL (3.2-5.2); ALT/SGPT 24 U/L (12-78); BILIRUBIN,TOTAL 0.2 MG/DL (0.2-1.0); BLOOD UREA NITROGEN 9 MG/DL (7-18); CALCIUM LEVEL 8.1 MG/DL (8.5-10.1); CARBON DIOXIDE LEVEL 31 MEQ/L (21-32); CHLORIDE LEVEL 102 MEQ/L (98-107); CREATININE FOR GFR 0.51 MG/DL (0.55-1.30); GLOMERULAR FILTRATION RATE > 60.0 (>51); GLUCOSE, FASTING 77 MG/DL (70-100); MAGNESIUM LEVEL 1.9 MG/DL (1.8-2.4); POTASSIUM SERUM 4.1 MEQ/L (3.5-5.1); SODIUM LEVEL 136 MEQ/L (136-145); TOTAL PROTEIN 5.1 GM/DL (6.4-8.2)
== END ==
LOC: M SFHCCAPE 09:29
PROVIDERS: ATTEND Physician Assistant
DX: K52.9 Noninfective gastroenteritis and colitis, unspecified (principal); E87.6 Hypokalemia

== ENCOUNTER → 2019-06-08 | Outpatient (REF) | payer OTHER ==
[2019-06-08 16:56] LABS: BASO # 0.1 10^3/uL (0.0-0.2); BASO % 1.2 % (0.0-1.0); EOS # 0.2 10^3/uL (0.0-0.5); EOS % 1.8 % (0.0-3.0); HEMATOCRIT 39.5 % (36.0-47.0); LYMPH # 1.6 10^3/uL (1.5-5.0); LYMPH % 19.2 % (24.0-44.0); MEAN CORPUSCULAR HEMOGLOBIN 32.3 pg (27.0-33.0); MEAN CORPUSCULAR HGB CONC 32.9 g/dl (32.0-36.5); MONO # 0.7 10^3/uL (0.0-0.8); MONO % 7.9 % (0.0-5.0); NEUTROPHILS % 69.7 % (36.0-66.0); PLATELET COUNT, AUTOMATED 518 10^3/uL (150-450); RED BLOOD COUNT 4.03 10^6/uL (4.00-5.40); WHITE BLOOD COUNT 8.5 10^3/uL (4.0-10.0)
[2019-06-08 16:59] LABS: ALBUMIN 2.2 GM/DL (3.2-5.2); ALT/SGPT 22 U/L (12-78); BILIRUBIN,TOTAL 0.2 MG/DL (0.2-1.0); BLOOD UREA NITROGEN 10 MG/DL (7-18); CARBON DIOXIDE LEVEL 26 MEQ/L (21-32); CHLORIDE LEVEL 106 MEQ/L (98-107); GLOMERULAR FILTRATION RATE > 60.0 (>51); GLUCOSE, FASTING 104 MG/DL (70-100); POTASSIUM SERUM 4.4 MEQ/L (3.5-5.1); SODIUM LEVEL 138 MEQ/L (136-145); TOTAL PROTEIN 5.3 GM/DL (6.4-8.2)
== END ==
LOC: M SFHCCAPE 08:42
PROVIDERS: ATTEND Physician Assistant
DX: E87.6 Hypokalemia (principal)

== ENCOUNTER → 2019-08-23 | Outpatient (CLI) | payer OTHER | LOC: M LABSMTC 09:42 | PROVIDERS: ATTEND Anesthesiology | DX: Z01.818 Encounter for other preprocedural examination (principal); Z11.59 Encounter for screening for other viral diseases | CPT/HCPCS: C9803; U0003 ==

== ENCOUNTER 2019-08-26 08:22 | Day surgery (SDC) | payer OTHER ==
[~2019-08-26] VITALS: Ht 162.6 cm; Wt 46.3 kg
[~2019-08-26 08:22] MED LIST changes: +LIDOCAINE 2% 100MG/5ML SDV (FOR ANES.) As Ordered ONE; +NS 1,000 ML IV ONE; +fentaNYL 100 MCG/2 ML INJECTION (J3010) As Ordered ONE; +propofoL 200 MG/20 ML VIAL As Ordered ONE
[2019-08-26] MEDS ORDERED: ePHEDrine SULFATE 25 MG/5 ML(5MG/ML) SYRINGE As Ordered ONE (10:17)
--- NOTE | 2019-08-26 10:21 | ROOR ---
Patient Name: Ivy Mcguire Procedure Date: 08/26/2019 9:34 AM Date of : 1965 Age: 54 Room: [facility] Gender: Female Note Status: Finalized Procedure: Upper GI endoscopy Indications: Diarrhea, Weight loss Providers: Jamie Navarro Jr, MD Referring MD: SHAWN Vázquez pa-c Requesting Provider: Medicines: Propofol per Anesthesia Complications: No immediate complications. Procedure: Pre-Anesthesia Assessment: - Prior to the procedure, a History and Physical was performed, and patient medications and allergies were reviewed. The patient is competent. The risks and benefits of the procedure and the sedation options and risks were discussed with the patient. All questions were answered and informed consent was obtained. Patient identification and proposed procedure were verified by the physician and the nurse in the pre-procedure area and in the procedure room. Mental Status Examination: alert and oriented. Airway Examination: normal oropharyngeal airway and neck mobility. Respiratory Examination: clear to auscultation. CV Examination: normal. ASA Grade Assessment: II - A patient with mild systemic disease. After reviewing the risks and benefits, the patient was deemed in satisfactory condition to undergo the procedure. The anesthesia plan was to use moderate sedation / analgesia (conscious sedation). Immediately prior to administration of medications, the patient was re-assessed for adequacy to receive sedatives. The heart rate, respiratory rate, oxygen saturations, blood pressure, adequacy of pulmonary ventilation, and response to care were monitored throughout the procedure. The physical status of the patient was re-assessed after the procedure. The Endoscope was introduced through the mouth, and advanced to the second part of duodenum. The upper GI endoscopy was accomplished without difficulty. The patient tolerated the procedure well. Findings: The upper third of the esophagus, middle third of the esophagus and lower third of the esophagus were normal. The cardia, gastric fundus, gastric body, gastric antrum, prepyloric region of the stomach and pylorus were normal. The duodenal bulb, first portion of the duodenum and second portion of the duodenum were normal. Impression: - Normal upper third of esophagus, middle third of esophagus and lower third of esophagus. - Normal cardia, gastric fundus, gastric body, antrum, prepyloric region of the stomach and pylorus. - Normal duodenal bulb, first portion of the duodenum and second portion of the duodenum. - No specimens collected. Recommendation: - Discharge patient to home (ambulatory). - Return to my office at appointment to be scheduled. Jamie Navarro MD Jamie Navarro Jr, MD 08/26/2019 10:21:08 AM Electronically signed by Jamie Navarro Jr, MD Number of Addenda: 0 Note Initiated On: 08/26/2019 9:34 AM Estimated Blood Loss: Estimated blood loss: none.
--- NOTE | 2019-08-26 10:24 | ROOR ---
Patient Name: Ivy Mcguire Procedure Date: 08/26/2019 9:34 AM Date of : 1965 Age: 54 Room: [facility] Gender: Female Note Status: Finalized Procedure: Colonoscopy Indications: Chronic diarrhea, Weight loss Providers: Jamie Navarro Jr, MD Referring MD: SHAWN Vázquez pa-c Requesting Provider: Medicines: Propofol per Anesthesia Complications: No immediate complications. Procedure: Pre-Anesthesia Assessment: - Prior to the procedure, a History and Physical was performed, and patient medications and allergies were reviewed. The patient is competent. The risks and benefits of the procedure and the sedation options and risks were discussed with the patient. All questions were answered and informed consent was obtained. Patient identification and proposed procedure were verified by the physician and the nurse in the pre-procedure area and in the procedure room. Mental Status Examination: alert and oriented. Airway Examination: normal oropharyngeal airway and neck mobility. Respiratory Examination: clear to auscultation. CV Examination: normal. ASA Grade Assessment: II - A patient with mild systemic disease. After reviewing the risks and benefits, the patient was deemed in satisfactory condition to undergo the procedure. The anesthesia plan was to use moderate sedation / analgesia (conscious sedation). Immediately prior to administration of medications, the patient was re-assessed for adequacy to receive sedatives. The heart rate, respiratory rate, oxygen saturations, blood pressure, adequacy of pulmonary ventilation, and response to care were monitored throughout the procedure. The physical status of the patient was re-assessed after the procedure. The Colonoscope was introduced through the anus and advanced to the cecum, identified by appendiceal orifice and ileocecal valve. The colonoscopy was performed without difficulty. The patient tolerated the procedure well. The quality of the bowel preparation was adequate. Findings: An area of mildly congested mucosa was found in the sigmoid colon, in the descending colon, in the transverse colon, in the ascending colon and in the cecum. This was biopsied with a cold forceps for histology. Two polyps were found in the sigmoid colon and descending colon. The polyps were medium in size. These polyps were removed with a hot snare. Resection was complete, but the polyp tissue was only partially retrieved. The rectum, cecum, appendiceal orifice and ileocecal valve appeared normal. Impression: - Congested mucosa in the sigmoid colon, in the descending colon, in the transverse colon, in the ascending colon and in the cecum. Biopsied. - Two medium polyps in the sigmoid colon and in the descending colon, removed with a hot snare. Complete resection. Partial retrieval. - The rectum, cecum, appendiceal orifice and ileocecal valve are normal. Recommendation: - Discharge patient to home (ambulatory). - Repeat colonoscopy in 3 - 5 years for surveillance based on pathology results. Jamie Navarro MD Jamie Navarro Jr, MD 08/26/2019 10:23:26 AM Electronically signed by Jamie Navarro Jr, MD Number of Addenda: 0 Note Initiated On: 08/26/2019 9:34 AM Estimated Blood Loss: Estimated blood loss: none.
[2019-08-26 11:10] VITALS: BP 88/46
== END 2019-08-26 11:05 | disposition home or self-care (01) ==
LOC: M OPP 08:22
PROVIDERS: ATTEND Surgery
DX: D12.6 Benign neoplasm of colon, unspecified (principal); K51.919 Ulcerative colitis, unspecified with unspecified complications; R63.4 Abnormal weight loss; K63.89 Other specified diseases of intestine; R19.7 Diarrhea, unspecified; F17.210 Nicotine dependence, cigarettes, uncomplicated; Z79.899 Other long term (current) drug therapy
CPT/HCPCS: 43235; 45380; 45385; 88305; J3010

== ENCOUNTER → 2020-07-05 | Outpatient (REF) | payer MEDICARE ==
[~2020-07-05] MED LIST changes: +BUPR150T12; -BUPR150T3; -LIDOCAINE 2% 100MG/5ML SDV (FOR ANES.) As Ordered ONE; -NS 1,000 ML IV ONE; +PANT40TA29 PO; -PANT40TA3 PO; -fentaNYL 100 MCG/2 ML INJECTION (J3010) As Ordered ONE; -propofoL 200 MG/20 ML VIAL As Ordered ONE
[2020-07-05 16:48] LABS: BASO # 0.1 10^3/uL (0.0-0.2); BASO % 1.8 % (0.0-1.0); EOS # 0.2 10^3/uL (0.0-0.5); EOS % 3.2 % (0.0-3.0); HEMATOCRIT 38.4 % (36.0-47.0); HEMOGLOBIN 12.8 g/dl (12.0-15.5); LYMPH # 1.8 10^3/uL (1.5-5.0); LYMPH % 31.3 % (24.0-44.0); MEAN CORPUSCULAR HEMOGLOBIN 32.7 pg (27.0-33.0); MEAN CORPUSCULAR HGB CONC 33.3 g/dl (32.0-36.5); MEAN CORPUSCULAR VOLUME 98.2 fl (80.0-96.0); MONO # 0.6 10^3/uL (0.0-0.8); MONO % 10.8 % (2.0-8.0); NEUTROPHILS % 52.7 % (36.0-66.0); PLATELET COUNT, AUTOMATED 280 10^3/uL (150-450); RED BLOOD COUNT 3.91 10^6/uL (4.00-5.40); WHITE BLOOD COUNT 5.6 10^3/uL (4.0-10.0)
[2020-07-05 17:12] LABS: ALBUMIN 3.8 GM/DL (3.2-5.2); ALT/SGPT 20 U/L (12-78); BILIRUBIN,TOTAL 0.5 MG/DL (0.2-1.0); BLOOD UREA NITROGEN 10 MG/DL (7-18); CALCIUM LEVEL 9.3 MG/DL (8.5-10.1); CARBON DIOXIDE LEVEL 28 MEQ/L (21-32); CHLORIDE LEVEL 105 MEQ/L (98-107); CHOLESTEROL LEVEL 148 MG/DL (<200); CHOLESTEROL RISK RATIO 2.208 (<5); CREATININE FOR GFR 0.54 MG/DL (0.55-1.30); GLOMERULAR FILTRATION RATE > 60.0 (>51); GLUCOSE, FASTING 93 MG/DL (70-100); HDL CHOLESTEROL 67 MG/DL (>40); LDL CHOLESTEROL 65 MG/DL (<100); NON-HDL-C 81 MG/DL; POTASSIUM SERUM 4.6 MEQ/L (3.5-5.1); SODIUM LEVEL 138 MEQ/L (136-145); TOTAL PROTEIN 6.8 GM/DL (6.4-8.2); TRIGLYCERIDES LEVEL 82 MG/DL (<150)
== END ==
LOC: M SFHCCAPE 08:52
PROVIDERS: ATTEND Physician Assistant
DX: G47.00 Insomnia, unspecified (principal); Z72.0 Tobacco use; Z13.6 Encounter for screening for cardiovascular disorders
CPT/HCPCS: 36415; 80053; 80061; 84443; 85025; G0463

== ENCOUNTER 2021-05-27 10:29 | Emergency (ER) | payer MEDICARE ==
[~2021-05-27] VITALS: Ht 162.6 cm; Wt 71.3 kg
[~2021-05-27 10:29] MED LIST changes: +LIDO1CRE42 TOP; -LIDO2.5C15 TOP
[2021-05-27] MEDS ORDERED: ANOR1AER (10:40)
[2021-05-27] MEDS ORDERED: ALBU83IN (10:40)
[2021-05-27] MEDS ORDERED: IPRATROPIUM 0.5MG/ALBUTEROL 2.5MG INH SOL UD 3ML (DUONEB) NEB ONE (11:00)
[2021-05-27] MEDS ORDERED: methylPREDNISolone 125MG 2ML VIAL IV ONE (11:00)
[2021-05-27 11:12] LABS: HEMATOCRIT 40.9 % (36.0-47.0); HEMOGLOBIN 13.7 g/dl (12.0-15.5); MEAN CORPUSCULAR HEMOGLOBIN 32.9 pg (27.0-33.0); MEAN CORPUSCULAR HGB CONC 33.5 g/dl (32.0-36.5); MEAN CORPUSCULAR VOLUME 98.3 fl (80.0-96.0); PLATELET COUNT, AUTOMATED 236 10^3/uL (150-450); RED BLOOD COUNT 4.16 10^6/uL (4.00-5.40); WHITE BLOOD COUNT 4.6 10^3/uL (4.0-10.0)
[2021-05-27 11:43] LABS: ALBUMIN 3.6 GM/DL (3.2-5.2); ALT/SGPT 25 U/L (12-78); BILIRUBIN,DIRECT < 0.1 MG/DL (0.0-0.2); BILIRUBIN,TOTAL 0.2 MG/DL (0.2-1.0); NT-PRO BNP 58 PG/ML (<125); THYROXINE (T4) 8.9 UG/DL (4.5-12.0); TOTAL PROTEIN 6.9 GM/DL (6.4-8.2)
[2021-05-27 11:48] LABS: ATYPICAL LYMPH 6 % (0-5); BASOPHILS 2 % (0-1); EOSINOPHILS 2 % (0-3); LYMPHOCYTES 46 % (16-44); MONOCYTES 9 % (0-5); NEUTROPHILS 35 % (28-66)
[2021-05-27 11:49] LABS: PLATELET ESTIMATE NORMAL (NORMAL)
[2021-05-27 12:39] VITALS: O2SAT 90
[2021-05-27] MEDS ORDERED: PRED20TA PO (12:46)
[2021-05-27 13:00] VITALS: BP 125/72
== END 2021-05-27 13:32 | disposition home or self-care (01) ==
LOC: M ED 10:29
DX: J44.1 Chronic obstructive pulmonary disease with (acute) exacerbation (principal); G43.909 Migraine, unspecified, not intractable, without status migrainosus; F32.A Depression, unspecified; F17.200 Nicotine dependence, unspecified, uncomplicated; R05.3 Chronic cough; Z79.51 Long term (current) use of inhaled steroids
CPT/HCPCS: 71045; 80047; 80076; 83605; 83880; 84436; 84443; 84484; 85025; 93005; 93041; 94640; 94760; 96374; 99285; J2930

== ENCOUNTER → 2021-07-02 | Outpatient (REF) | payer MEDICARE ==
[~2021-07-02] MED LIST changes: +ALBU83IN; +ANOR1AER; +PRED20TA PO
[2021-07-02 16:12] LABS: BASO # 0.1 10^3/uL (0.0-0.2); BASO % 1.3 % (0.0-1.0); EOS # 0.1 10^3/uL (0.0-0.5); EOS % 1.3 % (0.0-3.0); HEMATOCRIT 41.1 % (36.0-47.0); HEMOGLOBIN 13.9 g/dl (12.0-15.5); LYMPH # 1.8 10^3/uL (1.5-5.0); LYMPH % 31.8 % (24.0-44.0); MEAN CORPUSCULAR HEMOGLOBIN 33.1 pg (27.0-33.0); MEAN CORPUSCULAR HGB CONC 33.8 g/dl (32.0-36.5); MEAN CORPUSCULAR VOLUME 97.9 fl (80.0-96.0); MONO # 0.7 10^3/uL (0.0-0.8); MONO % 12.2 % (2.0-8.0); NEUTROPHILS % 53.4 % (36.0-66.0); PLATELET COUNT, AUTOMATED 260 10^3/uL (150-450); WHITE BLOOD COUNT 5.6 10^3/uL (4.0-10.0)
[2021-07-02 16:38] LABS: ALT/SGPT 25 U/L (12-78); BILIRUBIN,TOTAL 0.4 MG/DL (0.2-1.0); BLOOD UREA NITROGEN 10 MG/DL (7-18); CALCIUM LEVEL 9.1 MG/DL (8.5-10.1); CARBON DIOXIDE LEVEL 27 MEQ/L (21-32); CHLORIDE LEVEL 102 MEQ/L (98-107); CHOLESTEROL LEVEL 173 MG/DL (<200); CHOLESTEROL RISK RATIO 2.703 (<5); CREATININE FOR GFR 0.64 MG/DL (0.55-1.30); GLOMERULAR FILTRATION RATE > 60.0 (>51); GLUCOSE, FASTING 81 MG/DL (70-100); HDL CHOLESTEROL 64 MG/DL (>40); NON-HDL-C 109 MG/DL; POTASSIUM SERUM 3.9 MEQ/L (3.5-5.1); SODIUM LEVEL 138 MEQ/L (136-145); TRIGLYCERIDES LEVEL 70 MG/DL (<150)
[2021-07-02 16:39] LABS: ALBUMIN 3.9 GM/DL (3.2-5.2); LDL CHOLESTEROL 95 MG/DL (<100); TOTAL 25(OH) VITAMIN D 16.2 NG/ML (30.0-100.0)
== END ==
LOC: M SFHCCAPE 09:49
PROVIDERS: ATTEND Physician Assistant
DX: C34.92 Malignant neoplasm of unspecified part of left bronchus or lung (principal); Z79.899 Other long term (current) drug therapy

== ENCOUNTER → 2021-08-09 | Outpatient (REF) | payer MEDICARE ==
[~2021-08-09] MED LIST changes: +ALBU2.5V10; -ALBU83IN
[2021-08-10 18:52] LABS: FOLATE 11.5 NG/ML
== END ==
LOC: M SFHCCAPE 08:45
PROVIDERS: ATTEND Physician Assistant
DX: R53.83 Other fatigue (principal)

== ENCOUNTER → 2022-04-08 | Outpatient (REF) | payer MEDICARE, OTHER | LOC: M SFHCCAPE 11:55 | PROVIDERS: ATTEND Physician Assistant | DX: J40 Bronchitis, not specified as acute or chronic (principal) ==

== ENCOUNTER → 2022-10-03 | Outpatient (REF) | payer OTHER, MEDICAID ==
[~2022-10-03] MED LIST changes: -LIDO1CRE42 TOP; +LIDO30CR18 TOP; +POTA-298 PO; -POTA1TAB14 PO
[2022-10-03 19:51] LABS: BASO # 0.1 10^3/uL (0.0-0.2); BASO % 1.2 % (0.0-1.0); EOS # 0.2 10^3/uL (0.0-0.5); EOS % 2.4 % (0.0-3.0); HEMATOCRIT 37.7 % (36.0-47.0); HEMOGLOBIN 12.4 g/dl (12.0-15.5); LYMPH # 2.5 10^3/uL (1.5-5.0); LYMPH % 32.4 % (24.0-44.0); MEAN CORPUSCULAR HEMOGLOBIN 32.4 pg (27.0-33.0); MEAN CORPUSCULAR HGB CONC 32.9 g/dl (32.0-36.5); MEAN CORPUSCULAR VOLUME 98.4 fl (80.0-96.0); MONO # 0.9 10^3/uL (0.0-0.8); MONO % 11.2 % (2.0-8.0); NEUTROPHILS % 52.5 % (36.0-66.0); PLATELET COUNT, AUTOMATED 324 10^3/uL (150-450); RED BLOOD COUNT 3.83 10^6/uL (4.00-5.40); WHITE BLOOD COUNT 7.6 10^3/uL (4.0-10.0)
[2022-10-03 19:56] LABS: ALBUMIN 3.4 G/DL (3.2-5.2); ALKALINE PHOSPHATASE 75 U/L (46-116); ALT/SGPT 12 U/L (7.0-40); AST/SGOT 8 U/L (<34); BILIRUBIN,TOTAL 0.3 MG/DL (0.3-1.2); BLOOD UREA NITROGEN 13 MG/DL (9-23); CALCIUM LEVEL 9.7 MG/DL (8.5-10.1); CARBON DIOXIDE LEVEL 29 MMOL/L (20-31); CHLORIDE LEVEL 103 MMOL/L (98-107); CHOLESTEROL LEVEL 161 MG/DL (<200); CHOLESTEROL RISK RATIO 3.57 (<5); CREATININE FOR GFR 0.68 MG/DL (0.55-1.30); GLOMERULAR FILTRATION RATE > 60.0 (>51); GLUCOSE, FASTING 74 MG/DL (60-100); LDL CHOLESTEROL 92.8 MG/DL (<100); MAGNESIUM LEVEL 1.9 MG/DL (1.8-2.4); POTASSIUM SERUM 4.6 MMOL/L (3.5-5.1); SODIUM LEVEL 137 MMOL/L (136-145); TOTAL PROTEIN 6.3 G/DL (5.7-8.2); TRIGLYCERIDES LEVEL 116 MG/DL (<150)
[2022-10-03 19:57] LABS: TOTAL 25(OH) VITAMIN D 28.4 NG/ML (20.0-100.0); VITAMIN B12 LEVEL 304 PG/ML (211-911)
== END ==
LOC: M SFHCCAPE 10:51
PROVIDERS: ATTEND Physician Assistant
DX: J44.9 Chronic obstructive pulmonary disease, unspecified (principal); E53.8 Deficiency of other specified B group vitamins; Z13.220 Encounter for screening for lipoid disorders; E55.9 Vitamin D deficiency, unspecified; C34.92 Malignant neoplasm of unspecified part of left bronchus or lung

== ENCOUNTER → 2022-12-27 | Outpatient (CLI) | payer OTHER, MEDICAID | LOC: M WUC 11:02 | PROVIDERS: ATTEND Physician Assistant Medical | DX: M25.551 Pain in right hip (principal) ==

== ENCOUNTER → 2023-03-26 | Outpatient (REF) | payer OTHER, MEDICAID ==
[2023-03-26 19:10] LABS: APPEARANCE, URINE HAZY (CLEAR); BACTERIA, URINE AUTO NEGATIVE (NEGATIVE); BILIRUBIN, URINE AUTO NEGATIVE (NEGATIVE); BLOOD, URINE BLOOD 1+ (NEGATIVE); COLOR, URINE AMBER (YELLOW); GLUCOSE, URINE (UA) AUTO NEGATIVE (NEGATIVE); KETONE, URINE AUTO NEGATIVE (NEGATIVE); LEUKOCYTE ESTERASE, URINE AUTO NEGATIVE (NEGATIVE); MUCUS, URINE SMALL (NEGATIVE); NITRITE, URINE AUTO NEGATIVE (NEGATIVE); PROTEIN, URINE AUTO NEGATIVE (NEGATIVE); RBC, URINE AUTO 21 /HPF (0-3); SPECIFIC GRAVITY URINE AUTO 1.023 (1.002-1.035); SQUAMOUS EPITHELIAL CELL UR AU 8 /HPF (0-6); WBC, URINE AUTO 0 /HPF (0-3)
== END ==
LOC: M SFHCCAPE 08:51
PROVIDERS: ATTEND Physician Assistant Medical
DX: R30.0 Dysuria (principal)

== ENCOUNTER → 2023-03-28 | Outpatient (REF) | payer OTHER, MEDICAID | LOC: M SFHCCAPE 12:32 | PROVIDERS: ATTEND Physician Assistant Medical | DX: R30.0 Dysuria (principal) ==

== ENCOUNTER → 2023-10-28 | Outpatient (CLI) | payer OTHER, MEDICAID ==
[~2023-10-28] MED LIST changes: +B-12100010 PO; +COLA100C5 PO; +FLUT1BLS8; +HYDR50TA70; +NOXI1TAB PO; +ONDA-282 PO; -ONDA4TAB6 PO
== END ==
LOC: M ONCR 09:54
PROVIDERS: ATTEND General Practice
DX: C79.31 Secondary malignant neoplasm of brain (principal); C34.32 Malignant neoplasm of lower lobe, left bronchus or lung; J44.9 Chronic obstructive pulmonary disease, unspecified; F17.210 Nicotine dependence, cigarettes, uncomplicated; Z79.899 Other long term (current) drug therapy; Z80.0 Family history of malignant neoplasm of digestive organs; Z80.1 Family history of malignant neoplasm of trachea, bronchus and lung; Z85.118 Personal history of other malignant neoplasm of bronchus and lung; Z87.891 Personal history of nicotine dependence; Z92.3 Personal history of irradiation; Z98.61 Coronary angioplasty status

== ENCOUNTER → 2023-11-10 | Outpatient (CLI) | payer OTHER, MEDICAID ==
[~2023-11-10] MED LIST changes: +GASTROGRAFIN SOLUTION 30ML As Ordered ONE; +ISOVUE-370 76% 100ML VIAL As Ordered ONE
== END ==
LOC: M RAD 12:14
PROVIDERS: ATTEND Internal Medicine Medical Oncology
DX: C34.90 Malignant neoplasm of unspecified part of unspecified bronchus or lung (principal)
CPT/HCPCS: 74177; Q9963; Q9967

== ENCOUNTER → 2023-11-28 | Outpatient (CLI) | payer OTHER, MEDICAID ==
[~2023-11-28] MED LIST changes: -GASTROGRAFIN SOLUTION 30ML As Ordered ONE; -ISOVUE-370 76% 100ML VIAL As Ordered ONE; +PROHANCE 279.3MG/ML 15ML VIAL As Ordered ONE
== END ==
LOC: M RAD 10:40
PROVIDERS: ATTEND General Practice
DX: C79.31 Secondary malignant neoplasm of brain (principal)
CPT/HCPCS: 70553; A9576

== ENCOUNTER → 2023-12-05 | Outpatient (CLI) | payer OTHER, MEDICAID ==
[~2023-12-05] MED LIST changes: -PROHANCE 279.3MG/ML 15ML VIAL As Ordered ONE
== END ==
LOC: M ONCR 09:10
PROVIDERS: ATTEND General Practice
DX: Z08 Encounter for follow-up examination after completed treatment for malignant neoplasm (principal); F17.210 Nicotine dependence, cigarettes, uncomplicated; Z79.899 Other long term (current) drug therapy; Z85.118 Personal history of other malignant neoplasm of bronchus and lung; Z85.841 Personal history of malignant neoplasm of brain; Z87.891 Personal history of nicotine dependence; Z92.29 Personal history of other drug therapy; Z92.3 Personal history of irradiation

== ENCOUNTER → 2024-02-16 | Outpatient (REF) | payer OTHER, MEDICAID ==
[2024-02-16 19:46] LABS: BASO # 0.1 10^3/uL (0.0-0.2); BASO % 1.3 % (0.0-1.0); EOS # 0.2 10^3/uL (0.0-0.5); HEMATOCRIT 39.7 % (36.0-47.0); HEMOGLOBIN 13.1 g/dl (12.0-15.5); LYMPH # 2.5 10^3/uL (1.5-5.0); LYMPH % 28.9 % (24.0-44.0); MEAN CORPUSCULAR HEMOGLOBIN 32.6 pg (27.0-33.0); MEAN CORPUSCULAR VOLUME 98.8 fl (80.0-96.0); MONO # 0.8 10^3/uL (0.0-0.8); MONO % 9.1 % (2.0-8.0); NEUTROPHILS % 58.5 % (36.0-66.0); PLATELET COUNT, AUTOMATED 344 10^3/uL (150-450); RED BLOOD COUNT 4.02 10^6/uL (4.00-5.40); WHITE BLOOD COUNT 8.6 10^3/uL (4.0-10.0)
[2024-02-16 20:19] LABS: FERRITIN 16.6 NG/ML (7.3-270.7)
[2024-02-16 20:20] LABS: THYROID STIMULATING HORMONE 1.862 uIU/ML (0.55-4.78)
[2024-02-16 20:21] LABS: VITAMIN B12 LEVEL 328 PG/ML (211-911)
[2024-02-16 20:22] LABS: FREE T4 1.34 NG/DL (0.89-1.76)
[2024-02-16 20:27] LABS: ALBUMIN 3.6 G/DL (3.2-5.2); ALKALINE PHOSPHATASE 77 U/L (35-104); ALT/SGPT 12 U/L (7.0-40); AST/SGOT 12 U/L (<34); BILIRUBIN,TOTAL 0.4 MG/DL (0.3-1.2); BLOOD UREA NITROGEN 15 MG/DL (9-23); CALCIUM LEVEL 9.7 MG/DL (8.5-10.1); CARBON DIOXIDE LEVEL 29 MMOL/L (20-31); CHLORIDE LEVEL 105 MMOL/L (98-107); CREATININE FOR GFR 0.77 MG/DL (0.55-1.30); GLOMERULAR FILTRATION RATE > 60.0 (>51); GLUCOSE, FASTING 99 MG/DL (60-100); IRON (FE) 58 UG/DL (50-170); PERCENT SATURATION 21.9 % (13.2-45.0); POTASSIUM SERUM 4.6 MMOL/L (3.5-5.1); SODIUM LEVEL 137 MMOL/L (136-145); TOTAL IRON BINDING CAPACITY 265 UG/DL (250-425); TOTAL PROTEIN 6.8 G/DL (5.7-8.2)
[2024-02-16 20:29] LABS: FOLATE 13.9 NG/ML (>5.4)
== END ==
LOC: M SFHCCAPE 08:56
PROVIDERS: ATTEND Physician Assistant Medical
DX: F32.1 Major depressive disorder, single episode, moderate (principal); E53.8 Deficiency of other specified B group vitamins

== ENCOUNTER 2024-05-23 17:17 | Emergency (ER) | payer OTHER, MEDICAID ==
[~2024-05-23] VITALS: Ht 162.6 cm; Wt 78.2 kg
[~2024-05-23 17:17] MED LIST changes: -ALBU2.5V10; +ALBU2.5V10 INH; -FLUT1BLS8; +FLUT1BLS8 PO
[2024-05-23] MEDS: ACETAMINOPHEN 500 MG TAB PO ONE (19:18)
[2024-05-23] MEDS: LIDOCAINE 5% (LIDODERM) PATCH TD ONE (19:20)
[2024-05-23 19:54] VITALS: BP 156/84; TEMP 99.1; O2SAT 92
[2024-05-24] MEDS ORDERED: HYDR-643 PO (14:20)
[2024-05-24] MEDS ORDERED: LEXA1TAB PO (14:20)
[2024-05-24] MEDS ORDERED: ACET-683 PO (14:20)
== END 2024-05-23 20:14 | disposition home or self-care (01) ==
LOC: M ED 17:17
DX: M54.6 Pain in thoracic spine (principal); W19.XXXA Unspecified fall, initial encounter; J44.9 Chronic obstructive pulmonary disease, unspecified; F51.01 Primary insomnia; F17.200 Nicotine dependence, unspecified, uncomplicated; C34.90 Malignant neoplasm of unspecified part of unspecified bronchus or lung; K21.9 Gastro-esophageal reflux disease without esophagitis; Z92.21 Personal history of antineoplastic chemotherapy; Z79.52 Long term (current) use of systemic steroids; Z79.899 Other long term (current) drug therapy; Y99.9 Unspecified external cause status

== ENCOUNTER 2024-05-24 12:31 | Inpatient (IN) | payer OTHER, MEDICAID ==
[2024-05-24] MEDS: ESCITALOPRAM OXALATE 10 MG TAB (LEXAPRO) PO SCH (09:00)
[2024-05-24] MEDS: ENOXAPARIN 40MG/0.4ML SYRINGE (J1650 PER 10MG) SC SCH (09:00)
[2024-05-24] MEDS: [UNRECOGNIZED DRUG - OTHER] IV ONE (13:00)
[2024-05-24] MEDS: NS 0.9% IV ONE (13:00)
[2024-05-24] MEDS: IPRATROPIUM 0.5MG/ALBUTEROL 2.5MG INH SOL UD 3ML (DUONEB) NEB SCH ×2 (13:13→16:36)
[2024-05-24] MEDS: cefTRIAXone SOD 2 GM in DEXTROSE 5% (D5W) ADV/MINI-BAG 50 ML IV ONE (13:13)
[2024-05-24 13:16] LABS: BASO % 0.5 % (0.0-1.0); HEMATOCRIT 40.7 % (36.0-47.0); HEMOGLOBIN 13.7 g/dl (12.0-15.5); LYMPH # 0.8 10^3/uL (1.5-5.0); LYMPH % 10.8 % (24.0-44.0); MEAN CORPUSCULAR HEMOGLOBIN 32.6 pg (27.0-33.0); MEAN CORPUSCULAR HGB CONC 33.7 g/dl (32.0-36.5); MEAN CORPUSCULAR VOLUME 96.9 fl (80.0-96.0); MONO # 0.7 10^3/uL (0.0-0.8); NEUTROPHILS # 5.7 10^3/uL (1.5-8.5); NEUTROPHILS % 78.4 % (36.0-66.0); PLATELET COUNT, AUTOMATED 233 10^3/uL (150-450); WHITE BLOOD COUNT 7.3 10^3/uL (4.0-10.0)
[2024-05-24 13:44] LABS: ABG BASE EXCESS -0.5 (-2.0-2.0); ABG HCO3 24.1 MMOL/L (22.0-26.0); ABG PARTIAL PRESSURE CO2 39.4 mmHg (35.0-45.0); ABG PARTIAL PRESSURE O2 203.8 mmHg (75.0-100.0); ABG STANDARD HCO3 24.1 MMOL/L. (22.0-26.0); ABG TOTAL CO2 25.3 MMOL/L (22.0-29.0); ABG pH (ARTERIAL) 7.404 UNITS (7.350-7.450)
[2024-05-24 13:49] LABS: THYROXINE (T4) 8.7 UG/DL (4.5-10.9)
[2024-05-24 13:50] LABS: ALBUMIN 3.6 G/DL (3.2-5.2); ALKALINE PHOSPHATASE 62 U/L (35-104); ALT/SGPT 17 U/L (7.0-40); AST/SGOT 23 U/L (<34); BILIRUBIN,DIRECT 0.1 MG/DL (<0.4); BILIRUBIN,TOTAL 0.3 MG/DL (0.3-1.2); BLOOD UREA NITROGEN 12 MG/DL (9-23); CALCIUM LEVEL 8.5 MG/DL (8.5-10.1); CARBON DIOXIDE LEVEL 25 MMOL/L (20-31); CHLORIDE LEVEL 107 MMOL/L (98-107); CREATININE FOR GFR 0.75 MG/DL (0.55-1.30); GLOMERULAR FILTRATION RATE > 60.0 (>51); GLUCOSE, FASTING 109 MG/DL (60-100); POTASSIUM SERUM 4.2 MMOL/L (3.5-5.1); SODIUM LEVEL 141 MMOL/L (136-145); THYROID STIMULATING HORMONE 0.948 uIU/ML (0.55-4.78); TOTAL PROTEIN 6.9 G/DL (5.7-8.2)
[2024-05-24] MEDS ORDERED: HOME MED LIST COMPLETE! XX SCH (14:20)
[2024-05-24] MEDS ORDERED: LEXA1TAB PO (14:20)
[2024-05-24] MEDS ORDERED: ACET-683 PO (14:20)
[2024-05-24] MEDS ORDERED: HYDR-643 PO (14:20)
[2024-05-24] MEDS ORDERED: methylPREDNISolone 125MG 2ML VIAL IV ONE (14:25)
[2024-05-24] MEDS: OSELTAMIVIR PHOSPHATE 75 MG CAP PO ONE (14:25)
[2024-05-24 15:02] LABS: ETHYL ALCOHOL (ETHANOL) 0.003 % (0.000-0.010)
[2024-05-24 15:04] LABS: SALICYLATE LEVEL < 3.0 MG/DL (<30)
[2024-05-24 15:35] LABS: OSMOLALITY SERUM 294 MOSM/KG (275-295)
[2024-05-24 16:50] LABS: AMPHETAMINES LEVEL URINE NEGATIVE (NEGATIVE); BARBITURATES URINE NEGATIVE (NEGATIVE); BENZODIAZEPINES URINE NEGATIVE (NEGATIVE); COCAINE METABOLITE URINE NEGATIVE (NEGATIVE); METHADONE URINE NEGATIVE (NEGATIVE); OPIATES URINE NEGATIVE (NEGATIVE)
[2024-05-24 16:51] LABS: CANNABINOIDS URINE NEGATIVE (NEGATIVE); PHENCYCLIDINE URINE NEGATIVE (NEGATIVE)
[2024-05-24] MEDS: methylPREDNISolone 40MG 1ML VIAL IV SCH (17:00)
[2024-05-24] MEDS ORDERED: DOXYCYCLINE HYCLATE 100 MG in DEXTROSE 5% (D5W) MINI-BAG PLU 100 ML IV SCH (18:10)
[2024-05-24] MEDS: BUDESONIDE 0.5 MG/2 ML INHALATION SUSPENSION NEB SCH (19:37)
[2024-05-24] MEDS: FORMOTEROL FUMARATE 20 MCG/2 ML INHALATION SOLUTION (PERFOROMIST) INH SCH (19:38)
[2024-05-24] MEDS ORDERED: SYMBICORT 160/4.5MCG INHALER 6GM INH SCH (20:00)
[2024-05-24] MEDS: ACETAMINOPHEN *IV* 1,000 MG in IV 1 EA IV ONE (20:16)
[2024-05-24] MEDS: OSELTAMIVIR PHOSPHATE 75 MG CAP PO SCH (20:50)
[2024-05-24] MEDS: DOXYCYCLINE HYCLATE 100MG TABLET PO SCH (20:51)
[2024-05-24] MEDS ORDERED: ACETAMINOPHEN 650MG SUPP PR PRN (23:35)
[2024-05-25] MEDS: DOXYCYCLINE HYCLATE 100 MG in DEXTROSE 5% (D5W) MINI-BAG PLU 100 ML IV SCH (04:13)
[2024-05-25 06:24] LABS: HEMATOCRIT 36.8 % (36.0-47.0); HEMOGLOBIN 12.4 g/dl (12.0-15.5); LYMPH # 0.6 10^3/uL (1.5-5.0); LYMPH % 11.2 % (24.0-44.0); MEAN CORPUSCULAR HEMOGLOBIN 32.8 pg (27.0-33.0); MEAN CORPUSCULAR HGB CONC 33.7 g/dl (32.0-36.5); MEAN CORPUSCULAR VOLUME 97.4 fl (80.0-96.0); MONO # 0.3 10^3/uL (0.0-0.8); MONO % 4.8 % (2.0-8.0); NEUTROPHILS # 4.7 10^3/uL (1.5-8.5); NEUTROPHILS % 83.5 % (36.0-66.0); PLATELET COUNT, AUTOMATED 203 10^3/uL (150-450); RED BLOOD COUNT 3.78 10^6/uL (4.00-5.40); WHITE BLOOD COUNT 5.6 10^3/uL (4.0-10.0)
[2024-05-25 06:39] LABS: BLOOD UREA NITROGEN 13 MG/DL (9-23); CALCIUM LEVEL 8.1 MG/DL (8.5-10.1); CARBON DIOXIDE LEVEL 25 MMOL/L (20-31); CHLORIDE LEVEL 106 MMOL/L (98-107); CREATININE FOR GFR 0.63 MG/DL (0.55-1.30); GLOMERULAR FILTRATION RATE > 60.0 (>51); GLUCOSE, FASTING 157 MG/DL (60-100); POTASSIUM SERUM 3.7 MMOL/L (3.5-5.1); SODIUM LEVEL 141 MMOL/L (136-145)
[2024-05-25] MEDS: TIOTROPIUM INHALER/CAPSULE (SPIRIVA) INH SCH (07:58)
[2024-05-25 08:29] LABS: PROCALCITONIN 0.17 ng/ml
[2024-05-25 11:20] VITALS: BP 147/87; TEMP 97.4; O2SAT 97
[2024-05-25 11:30] VITALS: O2SAT 98
[2024-05-25 11:35] VITALS: O2SAT 96
[2024-05-25 12:30] VITALS: O2SAT 95
[2024-05-25] MEDS: ACETAMINOPHEN 325 MG TAB PO PRN (12:45)
[2024-05-25] MEDS ORDERED: cefTRIAXone SOD 1 GM in DEXTROSE 5% (D5W) ADV/MINI-BAG 50 ML IV SCH (13:00)
[2024-05-25] MEDS: cefTRIAXone SOD 1 GM in DEXTROSE 5% (D5W) ADV/MINI-BAG 50 ML IV SCH (13:03)
[2024-05-25 20:01] VITALS: BP 138/90; TEMP 97.9; O2SAT 92
[2024-05-26 04:27] VITALS: BP 140/88; TEMP 97.4; O2SAT 94
[2024-05-26 06:46] LABS: BASO % 0.1 % (0.0-1.0); EOS % 0.1 % (0.0-3.0); HEMATOCRIT 35.7 % (36.0-47.0); HEMOGLOBIN 11.9 g/dl (12.0-15.5); LYMPH # 0.7 10^3/uL (1.5-5.0); LYMPH % 6.5 % (24.0-44.0); MEAN CORPUSCULAR HEMOGLOBIN 31.6 pg (27.0-33.0); MEAN CORPUSCULAR HGB CONC 33.3 g/dl (32.0-36.5); MEAN CORPUSCULAR VOLUME 94.7 fl (80.0-96.0); MONO # 0.4 10^3/uL (0.0-0.8); MONO % 3.9 % (2.0-8.0); NEUTROPHILS # 9.6 10^3/uL (1.5-8.5); NEUTROPHILS % 88.9 % (36.0-66.0); PLATELET COUNT, AUTOMATED 224 10^3/uL (150-450); RED BLOOD COUNT 3.77 10^6/uL (4.00-5.40); WHITE BLOOD COUNT 10.8 10^3/uL (4.0-10.0)
[2024-05-26 07:20] LABS: BLOOD UREA NITROGEN 20 MG/DL (9-23); CALCIUM LEVEL 8.4 MG/DL (8.5-10.1); CARBON DIOXIDE LEVEL 26 MMOL/L (20-31); CHLORIDE LEVEL 108 MMOL/L (98-107); GLOMERULAR FILTRATION RATE > 60.0 (>51); GLUCOSE, FASTING 147 MG/DL (60-100); POTASSIUM SERUM 4.5 MMOL/L (3.5-5.1); SODIUM LEVEL 141 MMOL/L (136-145)
[2024-05-26 12:05] VITALS: BP 143/78; TEMP 97.6; O2SAT 93
[2024-05-26] MEDS ORDERED: CEFD1CAP9 PO (13:47)
[2024-05-26] MEDS ORDERED: DOXY-440 PO (13:47)
[2024-05-26] MEDS ORDERED: PRED10TA2 PO (13:47)
[2024-05-26] MEDS ORDERED: OSEL75CA2 PO (13:47)
== END 2024-05-26 14:48 | disposition home or self-care (01) | DRG 193 ==
LOC: EDBD 12:31 → M ED 12:31 → M ED INP 15:55 → M MS4PR 05-25 11:11
PROVIDERS: ADMIT Internal Medicine Nephrology; ATTEND Student in an Organized Health Care Education/Training Program
DX: J10.00 Influenza due to other identified influenza virus with unspecified type of pneumonia (principal); G93.41 Metabolic encephalopathy; J44.1 Chronic obstructive pulmonary disease with (acute) exacerbation; C79.31 Secondary malignant neoplasm of brain; C34.12 Malignant neoplasm of upper lobe, left bronchus or lung; J18.9 Pneumonia, unspecified organism; Z92.3 Personal history of irradiation; Z79.899 Other long term (current) drug therapy; F41.9 Anxiety disorder, unspecified; F32.A Depression, unspecified; Z80.1 Family history of malignant neoplasm of trachea, bronchus and lung; G43.909 Migraine, unspecified, not intractable, without status migrainosus; Z66 Do not resuscitate

== ENCOUNTER → 2024-07-20 | Outpatient (REF) | payer OTHER, MEDICAID ==
[~2024-07-20] MED LIST changes: +ACET-683 PO; +CEFD1CAP9 PO; +DOXY-440 PO; +HYDR-643 PO; +LEXA1TAB PO; +OSEL75CA2 PO; +PRED10TA2 PO
[2024-07-20 18:55] LABS: AMORPHOUS SEDIMENT SMALL (NEGATIVE); APPEARANCE, URINE HAZY (CLEAR); BACTERIA, URINE AUTO NEGATIVE (NEGATIVE); BILIRUBIN, URINE AUTO NEGATIVE (NEGATIVE); BLOOD, URINE BLOOD 1+ (NEGATIVE); COLOR, URINE YELLOW (YELLOW); GLUCOSE, URINE (UA) AUTO NEGATIVE (NEGATIVE); KETONE, URINE AUTO NEGATIVE (NEGATIVE); LEUKOCYTE ESTERASE, URINE AUTO NEGATIVE (NEGATIVE); MUCUS, URINE SMALL (NEGATIVE); NITRITE, URINE AUTO NEGATIVE (NEGATIVE); PROTEIN, URINE AUTO NEGATIVE (NEGATIVE); RBC, URINE AUTO 13 /HPF (0-3); SPECIFIC GRAVITY URINE AUTO 1.021 (1.002-1.035); SQUAMOUS EPITHELIAL CELL UR AU 6 /HPF (0-6); WBC, URINE AUTO 1 /HPF (0-3)
== END ==
LOC: M SFHCCAPE 10:40
PROVIDERS: ATTEND Physician Assistant Medical
DX: N94.89 Other specified conditions associated with female genital organs and menstrual cycle (principal); R30.0 Dysuria

== ENCOUNTER → 2024-07-21 | Outpatient (CLI) | payer OTHER, MEDICAID | LOC: M ONCR 13:55 | PROVIDERS: ATTEND General Practice | DX: C79.31 Secondary malignant neoplasm of brain (principal); C34.12 Malignant neoplasm of upper lobe, left bronchus or lung; Z87.891 Personal history of nicotine dependence; Z92.3 Personal history of irradiation; Z79.51 Long term (current) use of inhaled steroids; Z79.899 Other long term (current) drug therapy ==

== ENCOUNTER → 2024-07-29 | Outpatient (REF) | payer OTHER, MEDICAID | LOC: M SFHCCAPE 09:04 | PROVIDERS: ATTEND Physician Assistant Medical | DX: N89.8 Other specified noninflammatory disorders of vagina (principal) ==

== ENCOUNTER → 2024-08-04 | Outpatient (REF) | payer OTHER, MEDICAID ==
[2024-08-04 17:43] LABS: APPEARANCE, URINE HAZY (CLEAR); BACTERIA, URINE AUTO NEGATIVE (NEGATIVE); BILIRUBIN, URINE AUTO NEGATIVE (NEGATIVE); BLOOD, URINE BLOOD 1+ (NEGATIVE); COLOR, URINE AMBER (YELLOW); GLUCOSE, URINE (UA) AUTO NEGATIVE (NEGATIVE); KETONE, URINE AUTO TRACE mg/dL (NEGATIVE); LEUKOCYTE ESTERASE, URINE AUTO NEGATIVE (NEGATIVE); MUCUS, URINE SMALL (NEGATIVE); NITRITE, URINE AUTO NEGATIVE (NEGATIVE); PROTEIN, URINE AUTO NEGATIVE (NEGATIVE); RBC, URINE AUTO 0 /HPF (0-3); SPECIFIC GRAVITY URINE AUTO 1.023 (1.002-1.035); SQUAMOUS EPITHELIAL CELL UR AU 13 /HPF (0-6); WBC, URINE AUTO 2 /HPF (0-3)
== END ==
LOC: M SFHCCAPE 09:43
PROVIDERS: ATTEND Physician Assistant Medical
DX: R31.29 Other microscopic hematuria (principal)

== ENCOUNTER → 2024-08-06 | Outpatient (CLI) | payer OTHER, MEDICAID ==
[~2024-08-06] MED LIST changes: +ISOVUE-370 76% 100ML VIAL As Ordered ONE
== END ==
LOC: M RAD 09:00
DX: C34.90 Malignant neoplasm of unspecified part of unspecified bronchus or lung (principal); R91.8 Other nonspecific abnormal finding of lung field
CPT/HCPCS: 71260; Q9967

== ENCOUNTER 2024-10-11 20:28 | Emergency (ER) | payer OTHER, MEDICAID ==
[~2024-10-11] VITALS: Ht 162.6 cm; Wt 74.7 kg
[~2024-10-11 20:28] MED LIST changes: -ISOVUE-370 76% 100ML VIAL As Ordered ONE
[2024-10-11 20:47] LABS: VENOUS BASE EXCESS -0.2 (-2.0-2.0); VENOUS HCO3 28.1 MMOL/L (23.0-27.0); VENOUS O2 SATURATION 93.8 % (60.0-80.0); VENOUS PARTIAL PRESSURE CO2 62.1 mmHg (38.0-50.0); VENOUS PARTIAL PRESSURE O2 77.0 mmHg (30.0-50.0); VENOUS PH 7.274 UNITS (7.330-7.430); VENOUS STANDARD HCO3 24.2 MMOL/L; VENOUS TOTAL CO2 30.0 MMOL/L (24.0-28.0)
[2024-10-11 20:57] LABS: BASO # 0.2 10^3/uL (0.0-0.2); BASO % 0.9 % (0.0-1.0); EOS # 0.4 10^3/uL (0.0-0.5); EOS % 2.4 % (0.0-3.0); LYMPH # 4.6 10^3/uL (1.5-5.0); LYMPH % 28.6 % (24.0-44.0); MONO # 1.2 10^3/uL (0.0-0.8); MONO % 7.7 % (2.0-8.0); NEUTROPHILS # 9.6 10^3/uL (1.5-8.5); NEUTROPHILS % 60.0 % (36.0-66.0); PLATELET COUNT, AUTOMATED 364 10^3/uL (150-450)
[2024-10-11] MEDS: LEVALBUTEROL 1.25 MG 0.5ML CONCENTRATE NEB NEB ONE ×3 (21:10→23:36)
[2024-10-11] MEDS: MAG SULF 1GM/100ML (MAG RUN) 1 GM in IV 1 EA IV ONE (21:11)
[2024-10-11] MEDS ORDERED: MUCI600T31 PO (21:12)
[2024-10-11] MEDS ORDERED: VITA1CAP25 PO (21:12)
[2024-10-11] MEDS ORDERED: D 1010002 PO (21:12)
[2024-10-11] MEDS ORDERED: HOME MED LIST COMPLETE! XX SCH (21:15)
[2024-10-11 21:18] LABS: CK-MB VALUE MASS 1.7 NG/ML (<3.6)
[2024-10-11] MEDS: ACETAMINOPHEN *IV* 1,000 MG in IV 1 EA IV ONE (21:18)
[2024-10-11 21:20] LABS: ALT/SGPT 13 U/L (7.0-40); AST/SGOT 22 U/L (<34); CALCIUM LEVEL 9.1 MG/DL (8.5-10.1); CARBON DIOXIDE LEVEL 29 MMOL/L (20-31); CHLORIDE LEVEL 104 MMOL/L (98-107); CREATININE FOR GFR 0.81 MG/DL (0.55-1.30); GLOMERULAR FILTRATION RATE 83.6 (>51); POTASSIUM SERUM 4.4 MMOL/L (3.5-5.1); SODIUM LEVEL 144 MMOL/L (136-145)
[2024-10-11 21:21] LABS: THYROXINE (T4) 7.8 UG/DL (4.5-10.9)
[2024-10-11 21:25] LABS: CPK CREATINE PHOSPHOKINASE 61 U/L (34-145); MB/CK RELATIVE INDEX 2.78 (< OR =4)
[2024-10-11 22:55] LABS: CK-MB VALUE MASS 1.6 NG/ML (<3.6)
[2024-10-11 22:57] LABS: CPK CREATINE PHOSPHOKINASE 52.0 U/L (34-145); MB/CK RELATIVE INDEX 3.07 (< OR =4)
[2024-10-11 23:26] VITALS: O2SAT 90
[2024-10-11] MEDS ORDERED: ISOVUE-370 76% 100 ML VIAL As Ordered ONE (23:30)
[2024-10-12] MEDS ORDERED: PRED10TA2 PO (01:28)
[2024-10-12] MEDS ORDERED: AZIT-12 PO (01:30)
[2024-10-12 01:42] VITALS: BP 112/58; TEMP 98.1; O2SAT 95
[2024-10-12] MEDS: AZITHROMYCIN 250 MG TABLET PO ONE (01:42)
== END 2024-10-12 01:50 | disposition home or self-care (01) ==
LOC: EDBD 20:28 → M ED 20:28
DX: J44.1 Chronic obstructive pulmonary disease with (acute) exacerbation (principal); Z85.118 Personal history of other malignant neoplasm of bronchus and lung; R00.0 Tachycardia, unspecified; Z79.1 Long term (current) use of non-steroidal anti-inflammatories (NSAID); Z79.51 Long term (current) use of inhaled steroids; Z79.899 Other long term (current) drug therapy
CPT/HCPCS: 36415; 71045; 71275; 80048; 80076; 82550; 82553; 82803; 83605; 83880; 84436; 84443; 84484; 85025; 87486; 87581; 87633; 87798; 93005; 93041; 94640; 94760; 96365; 96367; 99285; J0131; J3475; Q9967

== ENCOUNTER → 2024-10-26 | Outpatient (REF) | payer OTHER, MEDICAID ==
[~2024-10-26] MED LIST changes: +AZIT-12 PO; +D 1010002 PO; +MUCI600T31 PO; +VITA1CAP25 PO
[2024-10-26 17:49] LABS: BASO # 0.1 10^3/uL (0.0-0.2); BASO % 1.2 % (0.0-1.0); EOS # 0.1 10^3/uL (0.0-0.5); EOS % 1.7 % (0.0-3.0); LYMPH # 2.2 10^3/uL (1.5-5.0); LYMPH % 29.0 % (24.0-44.0); MONO # 0.7 10^3/uL (0.0-0.8); MONO % 8.8 % (2.0-8.0); NEUTROPHILS # 4.5 10^3/uL (1.5-8.5); NEUTROPHILS % 59.0 % (36.0-66.0); PLATELET COUNT, AUTOMATED 319 10^3/uL (150-450)
[2024-10-26 17:58] LABS: ALT/SGPT 10.0 U/L (7.0-40); AST/SGOT 14.0 U/L (<34); CALCIUM LEVEL 8.4 MG/DL (8.5-10.1); CARBON DIOXIDE LEVEL 27.0 MMOL/L (20-31); CHLORIDE LEVEL 107.0 MMOL/L (98-107); CHOLESTEROL LEVEL 177.0 MG/DL (<200); CHOLESTEROL RISK RATIO 3.85 (<5); CREATININE FOR GFR 0.78 MG/DL (0.55-1.30); GLOMERULAR FILTRATION RATE 87.4 (>51); LDL CHOLESTEROL 118.3 MG/DL (<100); NON-HDL-C 131.1 MG/DL; POTASSIUM SERUM 4.4 MMOL/L (3.5-5.1); SODIUM LEVEL 143.0 MMOL/L (136-145); TRIGLYCERIDES LEVEL 64.0 MG/DL (<150)
[2024-10-26 18:00] LABS: FREE T4 1.25 NG/DL (0.89-1.76); VITAMIN B12 LEVEL 346.0 PG/ML (211-911)
== END ==
LOC: M SFHCCAPE 09:08
PROVIDERS: ATTEND Physician Assistant Medical
DX: R87.89 Other abnormal findings in specimens from female genital organs (principal); Z13.220 Encounter for screening for lipoid disorders; E53.8 Deficiency of other specified B group vitamins; F32.1 Major depressive disorder, single episode, moderate

== ENCOUNTER 2024-11-05 08:17 | Day surgery (SDC) | payer OTHER, MEDICAID ==
[~2024-11-05] VITALS: Ht 162.6 cm; Wt 73.4 kg
[~2024-11-05 08:17] MED LIST changes: +KETOROLAC 30 MG/ML 1 ML VIAL As Ordered ONE; +LIDOCAINE 2% 100 MG/5 ML SDV (FOR ANES.) As Ordered ONE; +ONDANSETRON 4MG 2ML VIAL As Ordered ONE; +dexAMETHasone 4 MG/ML 1 ML VIAL As Ordered ONE
[2024-11-05] MEDS ORDERED: MIDAZOLAM INJ 2 MG/2 ML VIAL As Ordered ONE (10:02)
[2024-11-05] MEDS: ceFAZolin SOD 2 GM IV ONCE IV ONE (11:16)
[2024-11-05] MEDS ORDERED: ACETAMINOPHEN 1000MG/100ML IV BAG As Ordered ONE (11:17)
[2024-11-05] MEDS: LIDOCAINE 2% MDV 20 ML VIAL As Ordered ONE (11:35)
[2024-11-05 13:10] VITALS: BP 161/86; TEMP 96.5; O2SAT 96
== END 2024-11-05 13:11 | disposition home or self-care (01) ==
LOC: M SDC 08:17
PROVIDERS: ATTEND Podiatrist
DX: D17.39 Benign lipomatous neoplasm of skin and subcutaneous tissue of other sites (principal); C34.92 Malignant neoplasm of unspecified part of left bronchus or lung; J43.2 Centrilobular emphysema; J44.89 Other specified chronic obstructive pulmonary disease; C78.7 Secondary malignant neoplasm of liver and intrahepatic bile duct; C79.31 Secondary malignant neoplasm of brain; C79.51 Secondary malignant neoplasm of bone; Z92.3 Personal history of irradiation; F17.210 Nicotine dependence, cigarettes, uncomplicated; Z79.899 Other long term (current) drug therapy; F41.9 Anxiety disorder, unspecified; F32.A Depression, unspecified
CPT/HCPCS: 15240; 28039; 88305; J0131; J0665; J0690; J1100; J1885; J2250; J2405; J3010

== ENCOUNTER → 2025-01-12 | Outpatient (CLI) | payer OTHER, MEDICAID ==
[~2025-01-12] MED LIST changes: -KETOROLAC 30 MG/ML 1 ML VIAL As Ordered ONE; -LIDOCAINE 2% 100 MG/5 ML SDV (FOR ANES.) As Ordered ONE; -ONDANSETRON 4MG 2ML VIAL As Ordered ONE; +OYST500T91 PO; +PROHANCE 279.3MG/ML 15ML VIAL As Ordered ONE; -dexAMETHasone 4 MG/ML 1 ML VIAL As Ordered ONE
== END ==
LOC: M RAD 08:20
PROVIDERS: ATTEND General Practice
DX: C79.31 Secondary malignant neoplasm of brain (principal)
CPT/HCPCS: 70553; A9576

== ENCOUNTER 2025-01-17 00:31 | Observation (INO) | payer OTHER, MEDICAID ==
[~2025-01-17] VITALS: Ht 162.6 cm; Wt 73.8 kg
[~2025-01-17 00:31] MED LIST changes: -OYST500T91 PO; -PROHANCE 279.3MG/ML 15ML VIAL As Ordered ONE
[2025-01-17] MEDS: IPRATROPIUM 0.5 MG/ALBUTEROL 2.5 MG INH SOL UD 3 ML NEB ONE ×6 (00:44→06:09)
[2025-01-17] MEDS: ALBUTEROL SULFATE 2.5 MG/0.5 ML INH CONCENTRATE NEB SOLN NEB ONE (00:49)
[2025-01-17 01:06] LABS: VENOUS BASE EXCESS -1.8 (-2.0-2.0); VENOUS HCO3 25.7 MMOL/L (23.0-27.0); VENOUS O2 SATURATION 77.9 % (60.0-80.0); VENOUS PARTIAL PRESSURE CO2 54.4 mmHg (38.0-50.0); VENOUS PARTIAL PRESSURE O2 46.2 mmHg (30.0-50.0); VENOUS PH 7.292 UNITS (7.330-7.430); VENOUS STANDARD HCO3 22.5 MMOL/L; VENOUS TOTAL CO2 27.4 MMOL/L (24.0-28.0)
[2025-01-17 01:19] LABS: BASO # 0.1 10^3/uL (0.0-0.2); BASO % 1.0 % (0.0-1.0); EOS # 0.3 10^3/uL (0.0-0.5); EOS % 2.4 % (0.0-3.0); LYMPH # 3.2 10^3/uL (1.5-5.0); LYMPH % 28.1 % (24.0-44.0); MONO # 0.9 10^3/uL (0.0-0.8); MONO % 7.8 % (2.0-8.0); NEUTROPHILS # 6.9 10^3/uL (1.5-8.5); NEUTROPHILS % 60.4 % (36.0-66.0); PLATELET COUNT, AUTOMATED 342 10^3/uL (150-450)
[2025-01-17 01:37] LABS: ALT/SGPT 12 U/L (7.0-40); AST/SGOT 19 U/L (<34); CALCIUM LEVEL 8.6 MG/DL (8.5-10.1); CARBON DIOXIDE LEVEL 28 MMOL/L (20-31); CHLORIDE LEVEL 106 MMOL/L (98-107); CREATININE FOR GFR 0.88 MG/DL (0.55-1.30); GLOMERULAR FILTRATION RATE 75.7 (>51); POTASSIUM SERUM 4.3 MMOL/L (3.5-5.1); SODIUM LEVEL 141 MMOL/L (136-145)
[2025-01-17 01:39] LABS: THYROXINE (T4) 8.5 UG/DL (4.5-10.9)
[2025-01-17] MEDS: ACETAMINOPHEN *IV* 1,000 MG in IV 1 EA IV ONE (03:20)
[2025-01-17] MEDS: KETOROLAC 30 MG/ML 1 ML VIAL IV ONE (03:21)
[2025-01-17] MEDS: MAG SULF 1GM/100ML (MAG RUN) 1 GM in IV 1 EA IV ONE (03:50)
[2025-01-17 05:50] LABS: CK-MB VALUE MASS 1.1 NG/ML (<3.6); CPK CREATINE PHOSPHOKINASE 62 U/L (34-145); MB/CK RELATIVE INDEX 1.77 (< OR =4)
[2025-01-17] MEDS ORDERED: ISOVUE-370 76% 100 ML VIAL As Ordered ONE (07:23)
[2025-01-17] MEDS: IPRATROPIUM 0.5 MG/ALBUTEROL 2.5 MG INH SOL UD 3 ML NEB SCH (08:24)
[2025-01-17 08:26] LABS: ABG BASE EXCESS 0.0 (-2.0-2.0); ABG HCO3 24.4 MMOL/L (22.0-26.0); ABG O2 SATURATION 96.0 % (95.0-99.0); ABG PARTIAL PRESSURE CO2 38.8 mmHg (35.0-45.0); ABG PARTIAL PRESSURE O2 79.0 mmHg (75.0-100.0); ABG STANDARD HCO3 24.5 MMOL/L. (22.0-26.0); ABG TOTAL CO2 25.6 MMOL/L (22.0-29.0); ABG pH (ARTERIAL) 7.416 UNITS (7.350-7.450)
[2025-01-17] MEDS ORDERED: OYST500T91 PO (09:46)
[2025-01-17] MEDS ORDERED: HOME MED LIST COMPLETE! XX SCH (09:50)
[2025-01-17] MEDS: ENOXAPARIN 40 MG/0.4 ML SYRINGE (J1650 PER 10MG) SC SCH (11:43)
[2025-01-17] MEDS: IPRATROPIUM 0.5 MG/ALBUTEROL 2.5 MG INH SOL UD 3 ML NEB PRN (11:45)
[2025-01-17] MEDS: AZITHROMYCIN 250 MG TABLET PO ONE (13:25)
[2025-01-17 16:25] VITALS: BP 138/74; TEMP 97.2; O2SAT 97
[2025-01-17 20:00] VITALS: BP 135/86; TEMP 97.9; O2SAT 97
[2025-01-17] MEDS: DOCUSATE SODIUM 100 MG CAPSULE PO SCH (20:08)
[2025-01-17] MEDS: ACETAMINOPHEN 325 MG TAB PO PRN (22:54)
[2025-01-18 04:07] VITALS: BP 129/69; TEMP 97.6; O2SAT 94
[2025-01-18 06:00] LABS: PLATELET COUNT, AUTOMATED 308 10^3/uL (150-450)
[2025-01-18 06:31] LABS: ALT/SGPT < 9 U/L (7.0-40); AST/SGOT 12 U/L (<34); CALCIUM LEVEL 9.6 MG/DL (8.5-10.1); CARBON DIOXIDE LEVEL 24 MMOL/L (20-31); CHLORIDE LEVEL 108 MMOL/L (98-107); CREATININE FOR GFR 0.71 MG/DL (0.55-1.30); GLOMERULAR FILTRATION RATE > 90.0 (>51); POTASSIUM SERUM 4.5 MMOL/L (3.5-5.1); SODIUM LEVEL 141 MMOL/L (136-145)
[2025-01-18] MEDS: SODIUM CHLORIDE HYPERTONIC 3% 4ML NEB SOL INH SCH (08:00)
[2025-01-18] MEDS: CALCIUM/VITAMIN D 500 MG TAB PO SCH (08:17)
[2025-01-18] MEDS: AZITHROMYCIN 250 MG TABLET PO SCH (08:17)
[2025-01-18] MEDS: ESCITALOPRAM OXALATE 5 MG TABLET PO SCH (08:17)
[2025-01-18 12:00] VITALS: BP 138/82; TEMP 97.9; O2SAT 96
[2025-01-18 19:51] VITALS: BP 144/72; TEMP 97.7; O2SAT 94
[2025-01-19 04:32] VITALS: BP 148/76; TEMP 97.6; O2SAT 93
[2025-01-19 05:52] LABS: BASO # 0.0 10^3/uL (0.0-0.2); BASO % 0.2 % (0.0-1.0); EOS # 0.0 10^3/uL (0.0-0.5); EOS % 0.1 % (0.0-3.0); LYMPH # 1.3 10^3/uL (1.5-5.0); LYMPH % 11.2 % (24.0-44.0); MONO # 0.5 10^3/uL (0.0-0.8); MONO % 4.0 % (2.0-8.0); NEUTROPHILS # 9.5 10^3/uL (1.5-8.5); NEUTROPHILS % 84.1 % (36.0-66.0); PLATELET COUNT, AUTOMATED 301 10^3/uL (150-450)
[2025-01-19 06:24] LABS: CALCIUM LEVEL 8.7 MG/DL (8.5-10.1); CARBON DIOXIDE LEVEL 26.0 MMOL/L (20-31); CHLORIDE LEVEL 107.0 MMOL/L (98-107); CREATININE FOR GFR 0.84 MG/DL (0.55-1.30); GLOMERULAR FILTRATION RATE 80.0 (>51); POTASSIUM SERUM 4.8 MMOL/L (3.5-5.1); SODIUM LEVEL 141.0 MMOL/L (136-145)
[2025-01-19] MEDS ORDERED: PRED10TA2 PO (11:47)
[2025-01-19] MEDS ORDERED: CEFD1CAP9 PO (11:47)
[2025-01-23] MEDS ORDERED: CYANOCOBALAMIN 500 MCG TAB PO SCH (09:00)
== END 2025-01-19 12:49 | disposition home or self-care (01) ==
LOC: M ED 00:31 → M ED INP 07:03 → INTOOBSV 07:03 → M MS4PR 16:51
PROVIDERS: ADMIT Internal Medicine; ATTEND Internal Medicine
DX: J44.1 Chronic obstructive pulmonary disease with (acute) exacerbation (principal); Z66 Do not resuscitate; Z85.118 Personal history of other malignant neoplasm of bronchus and lung; Z86.011 Personal history of benign neoplasm of the brain; Z92.3 Personal history of irradiation; F39 Unspecified mood [affective] disorder; F17.210 Nicotine dependence, cigarettes, uncomplicated; K59.00 Constipation, unspecified; Z79.51 Long term (current) use of inhaled steroids; Z79.899 Other long term (current) drug therapy
CPT/HCPCS: 36415; 71045; 71275; 80048; 80053; 80076; 82550; 82553; 82803; 83605; 83880; 84145; 84436; 84443; 84484; 85025; 85027; 87070; 87077; 87205; 87486; 87581; 87633; 87641; 87798; 93005; 93041; 94640; 94667; 94760; 96365; 96367; 96372; 96375; 96376; 97161; 97530; 99285; G0378; J0131; J1100; J1650; J1885; J2919; J3475; Q9967

== ENCOUNTER 2025-02-02 21:36 | Emergency (ER) | payer OTHER, MEDICAID ==
[~2025-02-02] VITALS: Ht 162.6 cm; Wt 75.9 kg
[~2025-02-02 21:36] MED LIST changes: +OYST500T91 PO
[2025-02-02 21:57] VITALS: TEMP 97.8
[2025-02-02 22:11] LABS: VENOUS BASE EXCESS -1.5 (-2.0-2.0); VENOUS HCO3 27.2 MMOL/L (23.0-27.0); VENOUS O2 SATURATION 60.6 % (60.0-80.0); VENOUS PARTIAL PRESSURE CO2 64.3 mmHg (38.0-50.0); VENOUS PARTIAL PRESSURE O2 35.2 mmHg (30.0-50.0); VENOUS PH 7.245 UNITS (7.330-7.430); VENOUS STANDARD HCO3 22.3 MMOL/L; VENOUS TOTAL CO2 29.2 MMOL/L (24.0-28.0)
[2025-02-02 22:16] LABS: BASO # 0.1 10^3/uL (0.0-0.2); BASO % 0.7 % (0.0-1.0); EOS # 0.2 10^3/uL (0.0-0.5); EOS % 1.7 % (0.0-3.0); LYMPH # 2.8 10^3/uL (1.5-5.0); LYMPH % 21.9 % (24.0-44.0); MONO # 1.1 10^3/uL (0.0-0.8); MONO % 8.7 % (2.0-8.0); NEUTROPHILS # 8.6 10^3/uL (1.5-8.5); NEUTROPHILS % 66.6 % (36.0-66.0); PLATELET COUNT, AUTOMATED 317 10^3/uL (150-450)
[2025-02-02 22:49] LABS: ALT/SGPT 20 U/L (7.0-40); AST/SGOT 24 U/L (<34); CALCIUM LEVEL 8.6 MG/DL (8.5-10.1); CARBON DIOXIDE LEVEL 29 MMOL/L (20-31); CHLORIDE LEVEL 108 MMOL/L (98-107); CREATININE FOR GFR 0.92 MG/DL (0.55-1.30); GLOMERULAR FILTRATION RATE 71.7 (>51); POTASSIUM SERUM 4.6 MMOL/L (3.5-5.1); SODIUM LEVEL 145 MMOL/L (136-145)
[2025-02-02] MEDS: KETOROLAC 30 MG/ML 1 ML VIAL IV ONE (23:16)
[2025-02-02] MEDS: ACETAMINOPHEN *IV* 1,000 MG in IV 1 EA IV ONE (23:17)
[2025-02-02] MEDS: IPRATROPIUM 0.5 MG/ALBUTEROL 2.5 MG INH SOL UD 3 ML NEB ONE ×2 (23:23→23:43)
[2025-02-02] MEDS: MAG SULF 1GM/100ML (MAG RUN) 1 GM in IV 1 EA IV ONE (23:48)
[2025-02-03 00:15] VITALS: BP 123/71
[2025-02-03 00:46] VITALS: O2SAT 94
[2025-02-03 01:00] VITALS: O2SAT 93
[2025-02-03] MEDS ORDERED: PRED10TA2 PO (01:01)
[2025-02-03] MEDS ORDERED: IPRA0.00 NEB (01:01)
== END 2025-02-03 01:26 | disposition home or self-care (01) ==
LOC: M ED 21:36
DX: J98.01 Acute bronchospasm (principal); J44.9 Chronic obstructive pulmonary disease, unspecified; F17.200 Nicotine dependence, unspecified, uncomplicated; C79.31 Secondary malignant neoplasm of brain; Z85.118 Personal history of other malignant neoplasm of bronchus and lung; Z79.1 Long term (current) use of non-steroidal anti-inflammatories (NSAID); Z79.52 Long term (current) use of systemic steroids; Z79.899 Other long term (current) drug therapy; Z79.2 Long term (current) use of antibiotics
CPT/HCPCS: 71045; 80048; 80076; 82803; 83520; 83605; 85025; 87486; 87581; 87633; 87798; 93005; 93041; 94640; 94760; 96365; 96366; 96375; 99285; J0134; J1100; J1885; J2765; J3475

== ENCOUNTER 2025-02-13 17:27 | Inpatient (IN) | payer OTHER, MEDICAID ==
[~2025-02-13] VITALS: Ht 162.6 cm; Wt 75.0 kg
[~2025-02-13 17:27] MED LIST changes: +IPRA0.00 NEB
[2025-02-13] MEDS: ALBUTEROL SULFATE 2.5 MG/0.5 ML INH CONCENTRATE NEB SOLN INH ONE (17:42)
[2025-02-13] MEDS: IPRATROPIUM 0.5 MG/ALBUTEROL 2.5 MG INH SOL UD 3 ML NEB ONE (17:43)
[2025-02-13 17:50] LABS: BASO # 0.1 10^3/uL (0.0-0.2); BASO % 0.4 % (0.0-1.0); EOS # 0.0 10^3/uL (0.0-0.5); EOS % 0.1 % (0.0-3.0); LYMPH # 3.6 10^3/uL (1.5-5.0); LYMPH % 20.9 % (24.0-44.0); MONO # 1.2 10^3/uL (0.0-0.8); MONO % 6.7 % (2.0-8.0); NEUTROPHILS # 12.3 10^3/uL (1.5-8.5); NEUTROPHILS % 71.2 % (36.0-66.0); PLATELET COUNT, AUTOMATED 427 10^3/uL (150-450)
[2025-02-13] MEDS: NS 500 ML IV ONE (17:51)
[2025-02-13 17:56] LABS: ABG BASE EXCESS -2.7 (-2.0-2.0); ABG HCO3 26.3 MMOL/L (22.0-26.0); ABG O2 SATURATION 99.0 % (95.0-99.0); ABG PARTIAL PRESSURE CO2 65.6 mmHg (35.0-45.0); ABG PARTIAL PRESSURE O2 233.2 mmHg (75.0-100.0); ABG STANDARD HCO3 22.3 MMOL/L. (22.0-26.0); ABG TOTAL CO2 28.3 MMOL/L (22.0-29.0); ABG pH (ARTERIAL) 7.221 UNITS (7.350-7.450)
[2025-02-13] MEDS ORDERED: ISOVUE-370 76% 100 ML VIAL As Ordered ONE (17:59)
[2025-02-13 18:13] LABS: CK-MB VALUE MASS < 1.0 NG/ML (<3.6)
[2025-02-13 18:16] LABS: ALT/SGPT 20 U/L (7.0-40); AST/SGOT 13 U/L (<34); CALCIUM LEVEL 8.7 MG/DL (8.5-10.1); CARBON DIOXIDE LEVEL 29 MMOL/L (20-31); CHLORIDE LEVEL 108 MMOL/L (98-107); CPK CREATINE PHOSPHOKINASE 24 U/L (34-145); CREATININE FOR GFR 0.86 MG/DL (0.55-1.30); GLOMERULAR FILTRATION RATE 77.8 (>51); POTASSIUM SERUM 4.7 MMOL/L (3.5-5.1); SODIUM LEVEL 144 MMOL/L (136-145)
[2025-02-13 18:55] LABS: THYROXINE (T4) 6.1 UG/DL (4.5-10.9)
[2025-02-13 19:14] LABS: CK-MB VALUE MASS 1.3 NG/ML (<3.6)
[2025-02-13 19:19] LABS: CPK CREATINE PHOSPHOKINASE 32.0 U/L (34-145); MB/CK RELATIVE INDEX 4.06 (< OR =4)
[2025-02-13 20:15] LABS: ABG BASE EXCESS 0.5 (-2.0-2.0); ABG HCO3 26.7 MMOL/L (22.0-26.0); ABG O2 SATURATION 98.6 % (95.0-99.0); ABG PARTIAL PRESSURE CO2 49.2 mmHg (35.0-45.0); ABG PARTIAL PRESSURE O2 127.5 mmHg (75.0-100.0); ABG STANDARD HCO3 25.0 MMOL/L. (22.0-26.0); ABG TOTAL CO2 28.2 MMOL/L (22.0-29.0); ABG pH (ARTERIAL) 7.352 UNITS (7.350-7.450)
[2025-02-13] MEDS: cefTRIAXone SOD 1 GM in DEXTROSE 5% (D5W) ADV/MINI-BAG 50 ML IV SCH (20:32)
[2025-02-13] MEDS: AZITHROMYCIN 250 MG TABLET PO SCH (21:10)
[2025-02-13 22:15] VITALS: BP 146/73; TEMP 97.4; O2SAT 96
[2025-02-13 22:30] VITALS: O2SAT 97
[2025-02-13] MEDS: guaiFENesin ER TABLET 600 MG TAB PO SCH (22:32)
[2025-02-13 22:45] VITALS: O2SAT 97
[2025-02-13 23:00] VITALS: O2SAT 99
[2025-02-13] MEDS: IPRATROPIUM 0.5 MG/ALBUTEROL 2.5 MG INH SOL UD 3 ML NEB SCH (23:01)
[2025-02-13 23:35] VITALS: BP 146/70; TEMP 97.5; O2SAT 96
[2025-02-14] VITALS (27 sets, daily range): BP systolic 123–144; BP diastolic 62–81; TEMP 97.3–97.9; O2SAT 92–98
[2025-02-14] MEDS ORDERED: PRED10TA2 PO (00:05)
[2025-02-14] MEDS ORDERED: LOSA50TA28 PO (00:05)
[2025-02-14] MEDS ORDERED: HOME MED LIST COMPLETE! XX SCH (00:10)
[2025-02-14 06:02] LABS: PLATELET COUNT, AUTOMATED 299 10^3/uL (150-450)
[2025-02-14 06:24] LABS: CALCIUM LEVEL 8.3 MG/DL (8.5-10.1); CARBON DIOXIDE LEVEL 26 MMOL/L (20-31); CHLORIDE LEVEL 105 MMOL/L (98-107); CREATININE FOR GFR 0.66 MG/DL (0.55-1.30); GLOMERULAR FILTRATION RATE > 90.0 (>51); POTASSIUM SERUM 4.7 MMOL/L (3.5-5.1); SODIUM LEVEL 142 MMOL/L (136-145)
[2025-02-14] MEDS: TIOTROPIUM BROM 2.5MCG/ACTUATION 4GM INH INH SCH (07:35)
[2025-02-14] MEDS: BUDESONIDE 0.5 MG/2 ML INHALATION SUSPENSION NEB SCH (07:35)
[2025-02-14] MEDS: ENOXAPARIN 40 MG/0.4 ML SYRINGE (J1650 PER 10MG) SC SCH (09:02)
[2025-02-14] MEDS: LOSARTAN 50 MG TABLET PO SCH (09:03)
[2025-02-14] MEDS: NICOTINE 21 MG/24 HR 1 EA TRANSDERMAL TD SCH (10:32)
[2025-02-15] VITALS (29 sets, daily range): BP systolic 130–144; BP diastolic 60–82; TEMP 97.1–97.7; O2SAT 89–99
[2025-02-15 05:34] LABS: BASO # 0.0 10^3/uL (0.0-0.2); BASO % 0.1 % (0.0-1.0); EOS # 0.0 10^3/uL (0.0-0.5); EOS % 0.0 % (0.0-3.0); LYMPH # 1.4 10^3/uL (1.5-5.0); LYMPH % 7.7 % (24.0-44.0); MONO # 0.9 10^3/uL (0.0-0.8); MONO % 5.0 % (2.0-8.0); NEUTROPHILS # 15.2 10^3/uL (1.5-8.5); NEUTROPHILS % 86.6 % (36.0-66.0)
[2025-02-15 05:55] LABS: CALCIUM LEVEL 8.5 MG/DL (8.5-10.1); CARBON DIOXIDE LEVEL 25 MMOL/L (20-31); CHLORIDE LEVEL 106 MMOL/L (98-107); CREATININE FOR GFR 0.69 MG/DL (0.55-1.30); GLOMERULAR FILTRATION RATE > 90.0 (>51); MAGNESIUM LEVEL 2.0 MG/DL (1.8-2.4); POTASSIUM SERUM 4.6 MMOL/L (3.5-5.1); SODIUM LEVEL 141 MMOL/L (136-145)
[2025-02-15] MEDS ORDERED: IPRATROPIUM 0.5 MG/ALBUTEROL 2.5 MG INH SOL UD 3 ML NEB PRN (09:35)
[2025-02-15] MEDS: ACETAMINOPHEN 500 MG TAB PO ONE (13:04)
[2025-02-15] MEDS: predniSONE 20 MG TAB PO SCH (16:15)
[2025-02-16] VITALS (11 sets, daily range): BP systolic 137–145; BP diastolic 68–79; TEMP 97.2–97.4; O2SAT 89–94
[2025-02-16] MEDS: ACETAMINOPHEN 500 MG TAB PO PRN (09:52)
[2025-02-16] MEDS ORDERED: AZIT-12 PO (12:26)
[2025-02-16] MEDS ORDERED: PRED10TA2 PO (12:29)
[2025-02-16] MEDS ORDERED: NICO14DI24 TD (12:36)
[2025-02-16] MEDS ORDERED: PRED20TA PO (12:36)
[2025-02-16] MEDS ORDERED: ALBU8.5H INH (12:36)
[2025-02-16] MEDS ORDERED: DOXY100C3 PO (12:36)
== END 2025-02-16 16:41 | disposition home health service (06) | DRG 189 ==
LOC: EDBD 17:27 → M ED 17:27 → M ED INP 20:32 → M PCU 22:12
PROVIDERS: ADMIT Internal Medicine; ATTEND General Practice
DX: J96.21 Acute and chronic respiratory failure with hypoxia (principal); J44.1 Chronic obstructive pulmonary disease with (acute) exacerbation; J96.02 Acute respiratory failure with hypercapnia; I10 Essential (primary) hypertension; F39 Unspecified mood [affective] disorder; F17.210 Nicotine dependence, cigarettes, uncomplicated; Z85.118 Personal history of other malignant neoplasm of bronchus and lung; Z85.841 Personal history of malignant neoplasm of brain; E55.9 Vitamin D deficiency, unspecified; E53.8 Deficiency of other specified B group vitamins; Z66 Do not resuscitate; Z79.899 Other long term (current) drug therapy; Z79.52 Long term (current) use of systemic steroids

== ENCOUNTER → 2025-03-01 | Outpatient (CLI) | payer OTHER, MEDICAID ==
[~2025-03-01] MED LIST changes: +DOXY100C3 PO; +LOSA50TA28 PO; +NICO14DI24 TD
== END ==
LOC: M ONCR 08:17
PROVIDERS: ATTEND General Practice
DX: C79.31 Secondary malignant neoplasm of brain (principal); Z87.891 Personal history of nicotine dependence; Z85.118 Personal history of other malignant neoplasm of bronchus and lung; Z92.3 Personal history of irradiation; Z79.2 Long term (current) use of antibiotics; Z79.51 Long term (current) use of inhaled steroids; Z79.899 Other long term (current) drug therapy